=== PATIENT | female | born 1980 | race Caucasian/White ===

== ENCOUNTER 2019-06-26 12:10 | Inpatient (IN) | payer SELFPAY ==
[2019-06-26 11:57] VITALS: BMI 29.3
[2019-06-26 12:04] LABS: ROM Internal Control Test YES-OK TO RESULT pt. (Internal QC)
[2019-06-26 12:05] LABS: ROM Patient Test POSITIVE (Negative); Record Kit Lot#, ROM+ J8255
[2019-06-26] MEDS: Lactated Ringers 1,000 ML 50 ML IV (12:40)
[2019-06-26 12:51] LABS: Absolute Lymphocyte Count 2.04 X10^3/uL (0.83-4.51); Basophil# 0.04 X10^3/uL; Basophil% 0.3 % (0-1); Eosinophil# 0.07 X10^3/uL; Eosinophils% 0.6 % (0-5); Hematocrit 38.4 % (37-47); Lymphocyte # 2.04 X10^3/ul (4.0); Lymphocyte % 16.5 % (19-41); Mean Corp Hgb Conc 33.9 g/dL (32-36); Mean Corpuscular Volume 88.5 fL (81-99); Mean Platelet Vol. 9.7 fl (6.2-12.0); Monocyte# 1.06 X10^3/uL; Monocyte% 8.6 % (0-10); NRBC Flagged by Analyzer 0 % (0-5); Neutrophil # 9.01 X10^3/uL (2.7-7.7); Neutrophil % 72.9 % (47-70); Platelet Count 174 K/mm3 (150-450); RBC Distribution Width CV 13.3 % (11.6-14.6); RBC Distribution Width SD 43.5 fl (35.1-43.9); Red Blood Count 4.34 M/mm3 (4.2-5.4); White Blood Count 12.4 K/mm3 (4.4-11.0)
[2019-06-26] MEDS: Oxytocin 30 units/NS 500 ml 30 UNITS/500 ML IV.SOLN IV (13:40)
[2019-06-26] MEDS: Lactated Ringers 500 ML 999 ML IV ×2 (15:50→17:13)
[2019-06-26] MEDS: fentaNYL-bupivacaine (epidural) 100 ML BAG EPIDURAL ×2 (16:21→21:02)
[2019-06-26] MEDS: ePHEDrine Sulfate 50 MG/ML Ampul 10 MG IV (19:30)
[2019-06-26] MEDS: Lactated Ringers 1,000 ML 200 ML IV (19:36)
[2019-06-26] MEDS: Amnioinfusion- 0.9% NS 1,000 ML IV.SOLN. INTRA-UTER (22:52)
[2019-06-27] MEDS: Lactated Ringers 1,000 ML 200 ML IV ×2 (01:17→07:42)
[2019-06-27] MEDS: fentaNYL-bupivacaine (epidural) 100 ML BAG EPIDURAL ×2 (01:54→07:00)
[2019-06-27] MEDS: Acetaminophen 325 MG Tablet PO (05:43)
--- NOTE | 2019-06-27 08:55 | PCM.HP.OB ---
- Problem List (1) Advanced maternal age during Status: Acute (2) History of depression Status: Acute (3) Term Status: Acute (4) Positive GBS test Status: Acute (5) Premature rupture of membranes Status: Acute History Date of Admission: 06/26/19 Final BING: 07/02/19 Final BING Source: LMP Gestational age: 39 Weeks and 2 Days History of this : This is a 39 year-old, G [1], P [0], at 39 weeks gestational age presented on 06/25/19 to office and possible ROM. Sent to L&D for evaluation and found positive for rupture. Probable ROM 06/25/19 around noon. Since hospital course maternal fever of 101 this am at 0500. Allergies No Known Allergies Allergy (Verified 06/26/19 11:57) Home Medications: Home Medications Ferrous Sulfate 325 mg PO DAILY 06/26/19 Loratadine [Claritin] 10 mg PO DAILY 06/26/19 [place]-3 Fatty Acids/Fish Oil [Fish Oil 1,000 mg Capsule] 1 ea PO DAILY 06/26/19 Vits [Prenatabs FA] 1 tab PO DAILY 06/26/19 Smoking Status: Never smoker Alcohol: None Number of Fetus(es): 1 NST - FHR Rate Baby A Baseline: 150 Variability:: Minimal Accelerations:: 15 x 15 Decelerations:: Late, Variable FHR Category:: Category II Uterine Activity:: every 2-3 minutes, strong History Past Pregnancies: Past Pregnancies Delivery Date Name GA/Weeks Outcome Route Weight Infant Gender Labor Length Anesthesia Delivery Location Provider FOB Labs: GC/CT negative RPR negative HBsAG negative Rubella Immune GBS positive AB negative Expected Delivery Method: Spontaneous Vaginal Review of Systems Constitutional: Denies: Chills, Fever, Weight Change Cardiovascular: Denies: Chest Pain, Palpitations Respiratory: Denies: Cough, Shortness of breath at rest, Sputum production Gastrointestinal: Reports: Abdominal Pain - with contractions Genitourinary: Denies: Dysuria Psychiatric: Denies: Anxiety, Depression, Homicidal Ideations, Suicidal Ideations Physical Exam General: Alert, Oriented x3, Cooperative Extremities:: No edema SECURITY ASSURANCE ANALYST: Normal external genitalia Estimated gestational size: Appropriate for gestational size Presentation: Cephalic Cervix Dilation (cm): 10 Assessment/Plan All Active Problems Advanced maternal age during (Acute) History of depression (Acute) Term (Acute) Positive GBS test (Acute) Premature rupture of membranes (Acute) This is a 39 year-old, G [1], P [0], at 39 weeks gestational age in active labor, second stage category 2 FHT Suspected Triple I Prolonged rupture of membranes P: 1) Admit to L&D, IV, routine labs 2) GBS antibiotic prophylaxis 3) notified of patient status and plan 4) Maternal fever 101 at 0500. No tachycardia or purulent discharge. Ampicillin and Gentamicin started for Suspected Triple I 5) Complete dilation at 0711, pushing 2hrs at this time. Pushing efforts effective and anticipate vaginal
[2019-06-27] MEDS: Oxytocin 30 units/NS 500 ml 30 UNITS/500 ML IV.SOLN 334 UNITS IV (10:10)
--- NOTE | 2019-06-27 10:33 | PCM.OPRPT ---
Vaginal Delivery Maternal Presentation: Spontaneous Rupture of Membranes, Medically Indicated Induction - suspected prolonged rupture of membranes Method of Induction: Pitocin Medical Reason for Induction: Premature Rupture of Membranes Amniotic Membrane Rupture Type: Spontaneous at home Rupture of Membrane time: unsure 06/25/19? Amniotic Fluid Description: Clear Final BING Source: US <20 weeks Gestational age: 39.2 Date of Procedure: 06/27/19 Pre-Operative Diagnosis: term gestation, SROM Post-Operative Diagnosis: Live female infant Surgery/ Procedure Performed: Vacuum Assisted Vaginal Delivery Type of Anesthesia: Epidural Description of Procedure: Called to evaulate tracing. She is having heart rate decelerations with contractions. Decision made for vacuum-assisted delivery. Vacuum was placed at 550 mmHg pressure total of 2 pulls with 0 pop offs to assist with delivery of the head. head was at the perineum when the vacuum was placed. Camejo catheter was placed. Back it was placed at the flexion point. Once the 's head was delivered the vacuum was released and the rest 's body was delivered without difficulty. Delayed cord clamping was performed was placed on the mother's chest. Presentation: Vertex Placental Delivery Description: Spontaneous Placenta Disposition: Routine to Lab Cord Vessel Description: 3 Vessels Cord Entanglement: None Drain: Camejo to straight drain Estimated Blood Loss: 400 Infant A gender: Female (1 minute): 8 (5 minute): 9 Episiotomy Description: None Laceration: Vaginal Extension/lac - repaired with 2-0 vicryl, 1st degree - repaired with 3-0 rapide, 2nd degree Medications given after delivery: IV Pitocin Complications: None
--- NOTE | 2019-06-27 10:37 | PLAC_PTH ---
PATIENT: NOAH OWENS LOC: [facility] U#:[id number] AGE/SX: 39/F ROOM: WP009 RE06/26/[address]: Dr. Sahara Blanco, MDDOB: 1980 BED: 1 DIS: 06/29/2019 SPEC #: [id number] RECD: 06/27/19 11:03 STATUS: MALCOLM GUIDO #: [id number] RACHNA: 06/27/19 10:[address]: Sahara Blanco DEPT: SURGICAL PATHOLOGY RECD BY: Petey Degroot ENTERED: 06/27/19 12:01 SP TYPE: PLACENTA AZAEL DR: Milka Primary Care Phys Tissues: Placenta, NOS Procedures: Surgery Specimen Level V HEADER OPERATION: Vaginal delivery PRE-OP DIAGNOSIS: Maternal temp, prolonged ROM TISSUE SUBMITTED: Placenta MICROSCOPIC DIAGNOSIS Placenta: Placental disc - third trimester placenta (542 gm). Membranes - acute chorioamnionitis. Umbilical cord - three blood vessels and mild acute funisitis. HAMZAH:nella 07/01/19 MICROSCOPIC DESCRIPTION Slides are reviewed. GROSS DESCRIPTION SPECIMEN: PLACENTA / CLINICAL INFORMATION: A. Weight: 3.188 kg B. Gestational Age: 39 weeks C. Sex: Female PLACENTAL WEIGHT (POST FIXATION): 542 gm PLACENTAL DIMENSIONS: 18 x 16 x 4 cm PLACENTAL SHAPE: Usual ovoid PLACENTAL WEIGHT FOR GESTATIONAL AGE: Within 10-99th percentile MEMBRANES - Present A. Insertion: Marginal B. Site of rupture from edge: 5 cm from edge of placental disc C. Color of membrane: Bowman-redd D. Abnormalities: None UMBILICAL CORD - Present A. Color: Bowman-redd B. Insertion: Paracentral C. Length: 54 cm D. Diameter: 1.2 cm E. Number of vessels: Three F. Abnormalities: None PLACENTAL DISC - Present A. Color of surface: Bowman-redd B. surface abnormalities: None C. Maternal cotyledons: Intact with minimal tears D. Attached retro placental clot: No clot E. Cut surface: Dark red and spongy F. Lesions: None G. Separate clot: Absent SECTIONS SUBMITTED: 1. Membrane roll 2. Cord, maternal end 3. Cord, end 4. Placental disc, and maternal surfaces 5. Placental disc, and maternal surfaces 6. Placental disc, and maternal surfaces SJ:nella 06/30/19 TC:2 CPT: 64221
[2019-06-27] MEDS: Ibuprofen 600 MG Tablet PO ×2 (12:52→21:31)
[2019-06-27] MEDS: Acetaminophen 500 MG Tablet 1000 MG PO (15:33)
[2019-06-27 15:34] VITALS: BP 102/57; PULSE 95; RESP 16; TEMP 37
--- NOTE | 2019-06-27 16:47 | NURSING ---
1545 pt up oob pt gait steady; pt showered
[2019-06-27 21:00] VITALS: BP 114/65; PULSE 84; RESP 18; TEMP 36.7
[2019-06-28 01:30] VITALS: BP 96/57; PULSE 72; RESP 18; TEMP 36.4
[2019-06-28 04:00] VITALS: BP 107/65; PULSE 97; RESP 18; TEMP 37
[2019-06-28] MEDS: Ibuprofen 600 MG Tablet PO ×2 (04:08→18:01)
[2019-06-28 06:27] LABS: Hematocrit 25.4 % (37-47); Hemoglobin 8.8 g/dL (12.0-15.0); Mean Corp Hgb Conc 34.6 g/dL (32-36); Mean Corpuscular Volume 89.4 fL (81-99); Mean Platelet Vol. 9.4 fl (6.2-12.0); Platelet Count 131 K/mm3 (150-450); RBC Distribution Width CV 13.6 % (11.6-14.6); Red Blood Count 2.84 M/mm3 (4.2-5.4); White Blood Count 20.8 K/mm3 (4.4-11.0)
[2019-06-28 10:00] VITALS: BP 110/63; PULSE 83; RESP 16; TEMP 36.1
--- NOTE | 2019-06-28 11:38 | PCM.PN.OB ---
Patient Problems: Active and Suspected Problems Advanced maternal age during (Acute) History of depression (Acute) Term (Acute) Positive GBS test (Acute) Premature rupture of membranes (Acute) Subjective: Doing well per patient and nursing staff. Ambulating and taking PO without difficulty. Voiding and passing and flatus. Denies headache, vision changes, chest pain, shortness of breath or leg pain. No increased vaginal bleeding or clots. Planning D/C home tomorrow. without difficulty. - Physical Exam General: Alert, Oriented x3, Cooperative HEENT: Atraumatic, Normocephalic Neck: Trachea Midline Lungs: Clear to auscultation, Normal air movement, No rhonchi, No wheeze Cardiovascular: Regular rate, Regular Rhythm, No murmurs Abdomen: Bowel Sounds Present, - - Fundus firm 2 below U Extremities: No edema Psych/Mental Status: Normal Affect, Appropriate Vital Signs Temp Pulse Resp BP 97 F L 83 16 110/63 06/28/19 10:00 06/28/19 10:00 06/28/19 10:00 06/28/19 10:00 Oxygen Delivery Method Room Air Weight: 170 lb 13.732 oz Body Mass Index (BMI) 29.3 Intake and Output for Last 24 Hours 06/26/19 06/27/19 06/28/19 23:59 23:59 23:59 Intake Total 2562.63 / 2562.63 4805.73 / 4805.73 Output Total 500 / 500 2400 / 2400 700 / 700 Balance 2062.63 / 2062.63 2405.73 / 2405.73 -700 / -700 Laboratory Tests Past 24 Hrs 06/27/19 06/28/19 15:25 06:20 WBC 20.8 H RBC 2.84 L Hgb 8.8 L Hct 25.4 L MCV 89.4 MCH 31.0 MCHC 34.6 RDW Std Deviation 44.0 H RDW Coeff of Vanessa 13.6 Plt Count 131 L MPV 9.4 Screen NEGATIVE Baby's Blood Type AB POSITIVE Baby's LANA NEGATIVE Medical Necessity - Tobacco Use Smoking Status: Never smoker Assessment/Plan All Active Problems Advanced maternal age during (Acute) History of depression (Acute) Term (Acute) Positive GBS test (Acute) Premature rupture of membranes (Acute) A: PPD #2 VAVD Blood loss anemia P: 1) Routine care 2) Planning D/C home tomorrow 3) Ferrous Sulfate 325mg PO BID. Repeat CBC in am 4) Will watch temp, no elevation post delivery. WBC 20.4, repeat in am. Nursing to call if temperature elevation.
[2019-06-28 14:00] VITALS: BP 119/75; PULSE 88; TEMP 36.5
[2019-06-28] MEDS: Ferrous Sulfate 325 MG Tablet PO ×2 (14:23→20:02)
[2019-06-28] MEDS: Senna/Docusate Sodium 1 Tablet PO (18:01)
[2019-06-28 20:00] VITALS: BP 107/52; PULSE 95; RESP 16; TEMP 36.8
[2019-06-29 01:42] VITALS: BP 126/66; PULSE 81; RESP 16; TEMP 36.4
[2019-06-29] MEDS: Ibuprofen 600 MG Tablet PO ×2 (04:15→10:25)
[2019-06-29 04:58] LABS: Absolute Lymphocyte Count 2.85 X10^3/uL (0.83-4.51); Absolute Neutrophil Count 9.5 X10^3/uL (2.0-7.7); Basophil# 0.07 X10^3/uL; Basophil% 0.5 % (0-1); Eosinophils% 2.2 % (0-5); Hematocrit 24.9 % (37-47); Hemoglobin 8.4 g/dL (12.0-15.0); Lymphocyte # 2.85 X10^3/ul (4.0); Lymphocyte % 20.5 % (19-41); Mean Corp Hgb Conc 33.7 g/dL (32-36); Mean Corpuscular Hgb 30.8 pg (27.0-32.0); Mean Corpuscular Volume 91.2 fL (81-99); Mean Platelet Vol. 9.5 fl (6.2-12.0); Monocyte# 1.09 X10^3/uL; Monocyte% 7.9 % (0-10); NRBC Flagged by Analyzer 0 % (0-5); Neutrophil # 9.46 X10^3/uL (2.7-7.7); Neutrophil % 68.1 % (47-70); Platelet Count 127 K/mm3 (150-450); RBC Distribution Width CV 13.9 % (11.6-14.6); RBC Distribution Width SD 45.1 fl (35.1-43.9); Red Blood Count 2.73 M/mm3 (4.2-5.4); White Blood Count 13.9 K/mm3 (4.4-11.0)
[2019-06-29 08:00] VITALS: BP 103/69; PULSE 84; RESP 16; TEMP 36.4
--- NOTE | 2019-06-29 10:51 | PCM.PN.OB ---
Patient Problems: Active and Suspected Problems Advanced maternal age during (Acute) History of depression (Acute) Term (Acute) Positive GBS test (Acute) Premature rupture of membranes (Acute) Subjective: Doing well per patient and nursing staff. Taking PO and ambulating without difficulty. Voiding and passing flatus. without difficulty. Planning D/C home today. Pain controlled with Ibuprofen. - Physical Exam General: Alert, Oriented x3, Cooperative HEENT: Atraumatic, Normocephalic Neck: Trachea Midline Lungs: Clear to auscultation, Normal air movement, No rhonchi, No wheeze Cardiovascular: Regular rate, Regular Rhythm, No murmurs Abdomen: Soft, - - Fundus firm 2 below U Extremities: No edema, - - Raffy's negative Psych/Mental Status: Normal Affect, Appropriate Comment: Lochia rubra small amount. Perineum well approximated. Vital Signs Temp Pulse Resp BP 97.6 F L 84 16 103/69 06/29/19 08:00 06/29/19 08:00 06/29/19 08:00 06/29/19 08:00 Oxygen Delivery Method Room Air Weight: 170 lb 13.732 oz Body Mass Index (BMI) 29.3 Intake and Output for Last 24 Hours 06/27/19 06/28/19 06/29/19 23:59 23:59 23:59 Intake Total 4805.73 / 4805.73 Output Total 2400 / 2400 700 / 700 Balance 2405.73 / 2405.73 -700 / -700 Laboratory Tests Past 24 Hrs 06/29/19 04:50 WBC 13.9 H RBC 2.73 L Hgb 8.4 L Hct 24.9 L MCV 91.2 MCH 30.8 MCHC 33.7 RDW Std Deviation 45.1 H RDW Coeff of Vanessa 13.9 Plt Count 127 L MPV 9.5 Immature Gran % (Auto) 0.800 Neut % (Auto) 68.1 Lymph % (Auto) 20.5 [place] % (Auto) 7.9 Eos % (Auto) 2.2 Baso % (Auto) 0.5 Absolute Neuts (auto) 9.5 H Absolute Lymphs (auto) 2.85 Nucleated RBC % 0 Medical Necessity - Tobacco Use Smoking Status: Never smoker Assessment/Plan All Active Problems Advanced maternal age during (Acute) History of depression (Acute) Term (Acute) Positive GBS test (Acute) Premature rupture of membranes (Acute) A:PPD #2 VAVD Blood loss anemia P: 1) D/C and instructions reviewed. 2) Ferrous Sulfate 325mg PO BID for blood loss anemia. Asymptomatic. 3) Follow up in 2 weeks and 6 weeks 4) D/C home today.
--- NOTE | 2019-06-29 10:54 | DCINST_ITS ---
Discharge Diet: No Restrictions Discharge Activity: Return to Normal Activity, May Drive, May Shower, May Take a Tub Bath May resume sexual activity in: 4-6 weeks Weight Bearing Status: Full weight bearing Additional Activity Instructions:: Nothing in the vagina for 4-6 weeks. You may return to work/school in 6 weeks. Call your doctor if your incision/area has: Continuous Slow Oozing, Sudden Increased Bleeding, Increased Pain/ Swelling, Increased Redness, Foul Smelling Discharge Call your doctor if you observe: Fever of 101 or Higher, Inability to urinate, Inability to have a bowel movement, Using more than one pad per hour, Shortness of breath, Chest pain, Increased palpitations (irregular heartbeat), Calf discomfort, Uncontrolled pain Additional Instructions: If you experience any of the following, contact your healthcare provider. * Bleeding that soaks a pad every hour for 2 hours * Fever 100.4 or higher * Unrelieved incision or abdominal pain * Swelling, redness, discharge or bleeding from your incision or episiotomy site * Your incision begins to separate * Problems urinating (including inability to urinate or burning while urinating). * Visual changes * Severe headache * Flu-like symptoms * Pain or redness in one of both of your breasts * Pain, warmth, tenderness or swelling in your legs, especially the calf area * Frequent nausea and vomiting * Symptoms of depression or anxiety If you experience any of the following, call 911 or go to the nearest Emergency Room. * Chest pain * Problems breathing * Seizure activity * Partial or complete paralysis of a body part, slurred speech, weakness or drooping of the face, or a sudden inability to walk or hold your balance Allergies/Adverse Reactions: Allergies No Known Allergies Allergy (Verified 06/26/19 11:57) Medications to take at Discharge [place]-3 Fatty Acids/Fish Oil [Fish Oil 1,000 mg Capsule] 1 ea PO DAILY 06/26/19 Vits [Prenatabs FA ] 1 tab PO DAILY 06/26/19 Ferrous Sulfate 325 mg PO 1200,1700 tab 06/29/19 Ibuprofen [Motrin] 600 mg PO Q6H PRN PRN tab 06/29/19 Please Follow Up With: Sahara Blanco MD When: Call to make an appointment with your doctor in 6 weeks. If you had elevated Blood Pressure or 4th degree laceration you will need to be seen in 2 weeks. Primary Care Physician: Care Physician,No Primary [Primary Care Provider] - Test Results: Test results from this visit will be discussed in further detail at your follow- up appointment, if applicable.
[2019-07-01 14:34] LABS: Pathology Specimen OB SEE PATHOLOGY REPORT
== END 2019-06-29 11:35 | disposition home or self-care (01) | DRG 805 ==
LOC: WPOUT 12:13
PROVIDERS: Obstetrics & Gynecology; Admitting Provider Obstetrics & Gynecology; Referring Provider Obstetrics & Gynecology; Visit Provider Obstetrics & Gynecology
DX: O76 Abnormality in fetal heart rate and rhythm complicating labor and delivery (principal); O41.1230 Chorioamnionitis, third trimester, not applicable or unspecified; Z37.0 Single live birth; D62 Acute posthemorrhagic anemia; O75.2 Pyrexia during labor, not elsewhere classified; O42.12 Full-term premature rupture of membranes, onset of labor more than 24 hours following rupture; O70.1 Second degree perineal laceration during delivery; O99.824 Streptococcus B carrier state complicating childbirth; O90.81 Anemia of the puerperium; Z3A.39 39 weeks gestation of pregnancy
CPT/HCPCS: 59025; 59050; 84112; 85025; 85027; 85461; 86850; 86900; 86901; 88307; 90384; 99218; J7030; J7120; G0378; J0290; J2790

== ENCOUNTER → 2022-03-27 | Outpatient (CLI) | payer SELFPAY ==
[2022-03-27 11:10] LABS: Absolute Lymphocyte Count 2.23 X10^3/uL (0.83-4.51); Absolute Neutrophil Count 5.8 X10^3/uL (2.0-7.7); Basophil# 0.06 X10^3/uL; Basophil% 0.7 % (0-1); Eosinophil# 0.05 X10^3/uL; Eosinophils% 0.6 % (0-5); Lymphocyte # 2.23 X10^3/ul (0.83-4.51); Lymphocyte % 25.3 % (19-41); Mean Corp Hgb Conc 34.2 g/dL (32-36); Mean Corpuscular Volume 87.8 fL (81-99); Mean Platelet Vol. 9.7 fl (6.2-12.0); Monocyte# 0.68 X10^3/uL; Monocyte% 7.7 % (0-10); NRBC Flagged by Analyzer 0 % (0-5); Neutrophil # 5.78 X10^3/uL (2.7-7.7); Neutrophil % 65.4 % (47-70); Platelet Count 246 K/mm3 (150-450); RBC Distribution Width CV 12.5 % (11.6-14.6); RBC Distribution Width SD 40.2 fl (35.1-43.9); Red Blood Count 4.33 M/mm3 (4.2-5.4); White Blood Count 8.8 K/mm3 (4.4-11.0)
[2022-03-27 11:55] LABS: Rubella IgG Reactive (Nonreactive)
[2022-03-29 17:18] LABS: HPV APTIMA, High Risk Negative (Negative)
== END | disposition home or self-care (01) ==
LOC: LAB 10:24
PROVIDERS: Referring Provider Obstetrics & Gynecology; Visit Provider Obstetrics & Gynecology
DX: Z34.90 Encounter for supervision of normal pregnancy, unspecified, unspecified trimester (principal); Z12.4 Encounter for screening for malignant neoplasm of cervix
CPT/HCPCS: 36415; 85025; 86762; 86850; 86900; 86901; 87086; 87624; 88175; G0145

== ENCOUNTER → 2022-05-23 | Outpatient (CLI) | payer SELFPAY ==
[2022-05-23 12:54] LABS: NATERA MAILED SPECIMEN
== END | disposition home or self-care (01) ==
LOC: LAB 11:51
PROVIDERS: Referring Provider Obstetrics & Gynecology; Visit Provider Obstetrics & Gynecology
DX: O09.512 Supervision of elderly primigravida, second trimester (principal); Z3A.00 Weeks of gestation of pregnancy not specified
CPT/HCPCS: 36415

== ENCOUNTER → 2022-06-08 | Outpatient (CLI) | payer SELFPAY ==
--- NOTE | 2022-06-08 08:03 | US_ITS ---
STUDY: SECOND AND THIRD TRIMESTER OBSTETRICAL ULTRASOUND REASON FOR EXAM: Female, 42 years old 20 week anatomy LMP: 01/08/2022. TECHNIQUE: Transabdominal and Transvaginal TECHNICAL QUALITY: Adequate. PRIOR ULTRASOUND: None. FINDINGS: There is a single intrauterine fetus. The fetus is in a breech presentation. There is demonstrated cardiac activity with a heart rate of 134 bpm. There is a normal amniotic fluid volume. The largest amniotic fluid pocket measures 4.6 cm. The amniotic fluid index (ZACHARY) is within normal limits. The placenta is posterior in location and is not low lying. There are Grade 0 placental changes. The cervix measures 5.5 cm in length. The bilateral adnexal regions are normal. BIOMETRY: BPD: 4.93 cm: 20 weeks, 6 days HC: 18.76 cm: 21 weeks, 0 days AC: 16.51 cm: 21 weeks, 4 days FL: 3.3 cm: 20 weeks, 2 days CI: 75% FL/BPD: 67% FL/HC: FL/AC: 20% HC/AC: 1.14 age by current US: 20 weeks, 6 days. BING by current US: 10/20/2022. Estimated weight: 394 grams, +/- grams, 19 %. Age by LMP: 21 weeks, 4 days. BING by LMP: 10/15/2022. ANATOMY: Gender: Female Cranium: Normal lateral ventricles. Normal choroid plexus. Normal cerebellum. Normal cisterna magna. Normal face, nose and lips. Chest: Normal 4-chamber heart. Abdomen/Pelvis: Normal diaphragm. Normal stomach. Normal abdominal wall. Normal cord insertion. Normal 3 vessel cord. Normal kidneys. Normal bladder. Spine: Normal cervical spine. Normal thoracic spine. Normal lumbar spine. Normal sacrum. Extremities: Normal bilateral upper extremities. Normal bilateral lower extremities. US/OB Anatomy Scan IMPRESSION: Single live intrauterine gestation with a mean gestational age of 20 weeks and 6 days. Electronically Signed: Freddy Hoffman MD at 15:07 EDT ,
== END | disposition home or self-care (01) ==
LOC: OPUS 07:50
PROVIDERS: Referring Provider Nurse Practitioner Women's Health; Visit Provider Nurse Practitioner Women's Health
DX: O09.512 Supervision of elderly primigravida, second trimester (principal); Z3A.20 20 weeks gestation of pregnancy
CPT/HCPCS: 76805; 76817

== ENCOUNTER 2022-06-14 11:11 | Emergency (ER) | payer SELFPAY ==
[2022-06-14 11:13] VITALS: BP 110/72; PULSE 107; RESP 14; TEMP 36.2; O2SAT 98; BMI 28.0
--- NOTE | 2022-06-14 11:57 | EDS_ITS ---
HPI HPI - GI History of Present Illness Chief Complaint: Abd Pain Informant: patient Narrative Narrative: Patient presents with nausea vomiting and epigastric discomfort. She contacted her OB physician who referred her here. Patient denies any chest pain shortness of breath leg pain or swelling. No history of DVT or PE. She did have a recent car drive that was about 8 or 9 hours. She did get out 2 or 3 times to walk around. She denies fevers or chills. She has some slight achiness but that is hard to tell if it is much different than her normal with . She did have some mild hyperemesis problems early in the but they were mild and had resolved. She does not know any sick contacts. Nothing makes this better or worse. Patient has had prior appendectomy. No cholecystectomy. She is G2, P1. Normal vaginal delivery with first . PFSH PFSH Home Medications vits,calcium no.78-iron fumarate-folic acid 29 mg-1 mg tablet 1 tab PO DAILY 06/26/19 [History Last Taken 06/06/22] magnesium citrate 100 mg capsule 200 mg PO DAILY 03/21/22 [History Last Taken 06/13/22] metoclopramide HCl 5 mg tablet (Reglan) 5 mg PO TID PRN nausea #30 tabs 05/23/22 [Rx Last Taken Unknown] Lactobacillus acidophilus 1,000 mmu cells PO DAILY 06/14/22 [History Last Taken 06/13/22] famotidine 20 mg tablet (Pepcid) 20 mg PO BID #14 tabs 06/14/22 [Rx Last Taken Unknown] loratadine 10 mg tablet 10 mg PO DAILY 06/14/22 [History Last Taken 06/13/22] ondansetron 4 mg disintegrating tablet 4 mg PO Q8H PRN nausea and vomiting #10 tabs 06/14/22 [Rx Last Taken Unknown] Allergy/AdvReac Type Severity Reaction Status Date / Time seasonal allergies Allergy Mild nasal Uncoded 06/14/22 11:13 drainage Family History Mother Diabetes Surgical History S/P appendectomy Social History adopted: No household members: spouse number of children: 1 current occupation: [employer] pets and animals: Yes (avoid litter box) pets and animals: cat(s) and dog(s) Smoking Status: Never smoker alcohol intake: never substance use type: does not use do you feel safe at home: Yes additional social history: spouse [place] EXAM Physical Exam Const Vital Signs: 06/14/22 11:13 06/14/22 14:18 Temperature 97.1 F L Temperature Source Temporal Pulse Rate 107 H 83 Respiratory Rate 14 18 Blood Pressure 110/72 117/69 Blood Pressure Mean 84 85 Pulse Ox 98 100 Oxygen Delivery Method Room Air Room Air Positive well nourished and well developed General Appearance ED: well developed and NAD; Negative for pallor HEENT Reports dry mucous membranes Mouth ED: Yes dry mucous membranes Mouth: dry mucous membranes Eyes General Eye ED: Negative for scleral icterus Neck supple Resp normal respiratory effort and clear to auscultation bilaterally Resp Narrative: No pain with a deep breath Auscultation: rales; Negative for rhonchi or wheezes Cardio regular rate GI GI Narrative: Bowel sounds are normal. Abdomen is gravid consistent with dates. Uterus is nontender. There is mild epigastric tenderness. No real right upper quadrant tenderness or left upper quadrant tenderness low. No rebound or guarding. Back/Spine no CVA tenderness Extremity full ROM Extremity Narrative: No edema, cords, distended veins or asymmetry. No tenderness along the deep venous system General Extremety ED: Negative for edema or tenderness General Extremity: Negative for edema Neuro Sensorium / Orientation: alert Psych mental status grossly normal Skin no wounds General Skin Exam: Negative for jaundice or pallor MDM MDM MDM Narrative Medical decision making narrative: Patient CBC shows minimal elevation of white count which is typical for her stage of . Hemoglobin is minimal anemia. Platelets are normal. Electrolytes are normal other than mildly low potassium. She states she can just eat a few bananas. LFTs are not elevated. Lipase is normal. Urine is clean. Patient is feeling better with treatment. She still has a little bit of dis comfort in the epigastrium. But she is not really tender. We did give her Pepcid. We talked about options. This patient has already had appendectomy. I do not think CAT scan is appropriate for her abdomen. We discussed the option of doing ultrasound. But she is already feeling better and has normal liver function test. She agreed that it is unlikely to have surgery for gallbladder issues now even if that is the cause. She is feeling better. Are agreed plan is that we will treat her symptoms with meds for nausea and Pepcid. If they are worsening, developing fevers, recurrent vomiting or any other concerns she she will return and we will look further. Lab Data Attestation: I reviewed the patient's lab results. Labs: Laboratory Results - last 24 hr 06/14/22 06/14/22 06/14/22 12:05 12:05 12:05 WBC 11.2 H RBC 3.68 L Hgb 11.2 L Hct 32.9 L MCV 89.4 MCH 30.4 MCHC 34.0 RDW Std Deviation 43.2 RDW Coeff of Vanessa 13.3 Plt Count 185 MPV 9.1 Immature Gran % (Auto) 0.800 Neut % (Auto) 71.1 H Lymph % (Auto) 18.4 L [place] % (Auto) 8.6 Eos % (Auto) 0.7 Baso % (Auto) 0.4 Absolute Neuts (auto) 7.9 H Absolute Lymphs (auto) 2.06 Nucleated RBC % 0 Sodium 137 Potassium 3.1 L Chloride 105 Carbon Dioxide 27.0 Anion Gap 5 BUN 7 Creatinine 0.50 L Estim Creat Clear Calc 129.15 Est GFR (MDRD) Af Amer 175 Est GFR (MDRD) Non-Af 144 BUN/Creatinine Ratio 13.9 Glucose 96 Calcium 8.4 L Total Bilirubin 0.80 AST 20 ALT 23 Alkaline Phosphatase 39 L Total Protein 6.3 L Albumin 2.7 L Globulin 3.6 Albumin/Globulin Ratio 0.8 L Lipase 257 Urine Color Yellow Urine Clarity Sl. Cloudy Urine pH 7.0 Ur Specific [place] 1.010 Urine Protein Negative Urine Glucose (UA) Normal Urine Ketones Negative Urine Occult Blood Negative Urine Nitrite Negative Urine Bilirubin Negative Urine Urobilinogen Normal Ur Leukocyte Esterase Negative Urine RBC 0 SEEN Urine WBC 0 SEEN Ur Squamous Epith Cells 0 SEEN Urine Bacteria 0 SEEN Urine Mucus 0 SEEN Discharge Plan Triage Chief Complaint: Abd Pain ED Provider: Asif Causey Dx/Rx/DC Orders Clinical Impression: Acute epigastric pain Instructions: ED Epigastric Pain Uncertain Cause Prescriptions: New ondansetron 4 mg tablet,disintegrating 4 mg PO Q8H PRN (Reason: nausea and vomiting) Qty: 10 0RF famotidine [Pepcid] 20 mg tablet 20 mg PO BID Qty: 14 0RF No Action magnesium citrate 100 mg capsule 200 mg PO DAILY metoclopramide HCl [Reglan] 5 mg tablet 5 mg PO TID PRN (Reason: nausea) Qty: 30 3RF Rx Instructions: administer 30 minutes before meals [id number] 1 TABLET tablet 1 tab PO DAILY Lactobacillus acidophilus Capsule 1,000 mmu cells PO DAILY loratadine 10 mg Tablet 10 mg PO DAILY Primary Care Provider: Care Physician,No Primary Referrals: Care Physician,No Primary [Primary Care Provider] - Disposition Disposition: Home, Self Care
--- NOTE | 2022-06-14 12:18 | CASEMGMT ---
Social Work Consult: No PCP Referral source: Self referral due to above. Met with patient in room. Introduced self and social service agency director role. Patient is agreeable to speak with this social service agency director. This social service agency director broached topic of no PCP. Patient confirms to not have a PCP. Patient reports to have moved to [place] 4 years ago and has not gotten a PCP set up as patient typically sees patient [employer]. This social service agency director encouraged patient to establish with a PCP as this can be helpful if patient has general medical issues/concerns. Patient voiced understanding and reports intent to have set up with PCP that patient spouse is established with but have not done it yet. Patient agreeable to this social service agency director providing patient with list of PCP's that are local to patient, patient has [facility] insurance, this social service agency director provided patient with list. Patient denies any further community concerns. No further services requested or indicated. Paul GUO, CHELO
[2022-06-14 12:20] LABS: Absolute Lymphocyte Count 2.06 X10^3/uL (0.83-4.51); Absolute Neutrophil Count 7.9 X10^3/uL (2.0-7.7); Basophil# 0.04 X10^3/uL; Basophil% 0.4 % (0-1); Eosinophil# 0.08 X10^3/uL; Eosinophils% 0.7 % (0-5); Hematocrit 32.9 % (37-47); Hemoglobin 11.2 g/dL (12.0-15.0); Lymphocyte # 2.06 X10^3/ul (0.83-4.51); Lymphocyte % 18.4 % (19-41); Mean Corpuscular Hgb 30.4 pg (27.0-32.0); Mean Corpuscular Volume 89.4 fL (81-99); Mean Platelet Vol. 9.1 fl (6.2-12.0); Monocyte# 0.96 X10^3/uL; Monocyte% 8.6 % (0-10); NRBC Flagged by Analyzer 0 % (0-5); Neutrophil # 7.94 X10^3/uL (2.7-7.7); Neutrophil % 71.1 % (47-70); Platelet Count 185 K/mm3 (150-450); RBC Distribution Width CV 13.3 % (11.6-14.6); RBC Distribution Width SD 43.2 fl (35.1-43.9); Red Blood Count 3.68 M/mm3 (4.2-5.4); White Blood Count 11.2 K/mm3 (4.4-11.0)
[2022-06-14] MEDS: Ondansetron 4 MG/2 ML Vial IV (12:28)
[2022-06-14] MEDS: 0.9% Normal Saline 1,000 ML 1000 ML IV (12:28)
[2022-06-14 12:35] LABS: ALB/GLOB Ratio 0.8 RATIO (0.9-2.4); AST(SGOT) 20 U/L (15-37); Alanine Aminotransfer ALT/SGPT 23 U/L (13-56); Albumin, Serum 2.7 g/dL (3.2-5.0); Alkaline Phosphatase 39 U/L (45-117); Anion Gap 5 (5-15); BUN 7 mg/dL (7-18); BUN/Creat Ratio 13.9 RATIO (10-20); Bacteria 0 SEEN /hpf (None Seen); Calcium,Total 8.4 mg/dL (8.5-10.1); Chloride 105 mmol/L (98-107); EST Glomerular Filtration Rate 144 mL/min (>60); Est Glom Filt Rate - Afr Amer 175 mL/min (>60); Estimated Creatinine Clearance 129.15 ml/min; Globulin 3.6 g/dL (2.2-4.2); Glucose 96 mg/dL (74-106); Lipase 257 U/L (73-393); Mucous, Urine 0 SEEN /hpf (<or=2+); Potassium 3.1 mmol/L (3.5-5.1); Protein, Total 6.3 g/dL (6.4-8.2); Red Blood Cells-Urine 0 SEEN /hpf (0-5); Sodium Level 137 mmol/L (136-145); Squamous Epithelial Cells - UA 0 SEEN /hpf (5-10); White Blood Cells 0 SEEN /hpf (0-5)
[2022-06-14 12:43] LABS: Color, Urine Yellow (Yellow); Glucose, Dipstick Normal (Normal); Ketone-Dipstick Negative (Negative); Leukocyte Esterase-Dipstick Negative /ul (Negative); Nitrite-Dipstick Negative (Negative); Occult Blood-Urine Negative /ul (Negative); Protein-Dipstick Negative (Negative); Urine Bilirubin Dipstick Negative (Negative); Urine Clarity Sl. Cloudy (Clear); Urine Urobilinogen Normal (Normal)
[2022-06-14] MEDS: Famotidine 20 MG Tablet PO (14:16)
[2022-06-14 14:18] VITALS: BP 117/69; PULSE 83; RESP 18; O2SAT 100
[2022-06-14 14:54] VITALS: BP 110/61; PULSE 84; RESP 16; O2SAT 100
== END 2022-06-14 14:54 | disposition home or self-care (01) ==
PROVIDERS: Emergency Provider Emergency Medicine; Visit Provider Emergency Medicine
DX: O26.899 Other specified pregnancy related conditions, unspecified trimester (principal); R10.13 Epigastric pain; Z3A.00 Weeks of gestation of pregnancy not specified
CPT/HCPCS: 80053; 81001; 83690; 85025; 96361; 96374; 99284; J7030; J2405

== ENCOUNTER → 2022-08-02 | Outpatient (CLI) | payer SELFPAY ==
[2022-08-02 11:40] LABS: Absolute Lymphocyte Count 1.88 X10^3/uL (0.83-4.51); Absolute Neutrophil Count 7.7 X10^3/uL (2.0-7.7); Basophil# 0.04 X10^3/uL; Basophil% 0.4 % (0-1); Eosinophil# 0.09 X10^3/uL; Eosinophils% 0.9 % (0-5); Hematocrit 28.7 % (37-47); Hemoglobin 10.2 g/dL (12.0-15.0); Lymphocyte # 1.88 X10^3/ul (0.83-4.51); Lymphocyte % 18.1 % (19-41); Mean Corp Hgb Conc 35.5 g/dL (32-36); Mean Corpuscular Volume 87.2 fL (81-99); Mean Platelet Vol. 9.4 fl (6.2-12.0); Monocyte# 0.68 X10^3/uL; Monocyte% 6.5 % (0-10); NRBC Flagged by Analyzer 0 % (0-5); Neutrophil # 7.67 X10^3/uL (2.7-7.7); Neutrophil % 73.6 % (47-70); Platelet Count 168 K/mm3 (150-450); RBC Distribution Width CV 12.9 % (11.6-14.6); Red Blood Count 3.29 M/mm3 (4.2-5.4); White Blood Count 10.4 K/mm3 (4.4-11.0)
[2022-08-02 11:49] LABS: Glucose Challenge Gest 1H 50g 118 mg/dL (70-140)
== END | disposition home or self-care (01) ==
PROVIDERS: Obstetrics & Gynecology; Referring Provider Obstetrics & Gynecology; Visit Provider Obstetrics & Gynecology
DX: O09.90 Supervision of high risk pregnancy, unspecified, unspecified trimester (principal); O26.899 Other specified pregnancy related conditions, unspecified trimester; Z67.91 Unspecified blood type, Rh negative; Z3A.00 Weeks of gestation of pregnancy not specified
CPT/HCPCS: 36415; 82950; 85025; 86900; 86901

== ENCOUNTER → 2022-09-15 | Outpatient (CLI) | payer SELFPAY ==
[2022-09-15 14:10] LABS: HIV - WCH Non-Reactive (Nonreactive); Hepatitis B Surface Antigen Non-Reactive (Nonreactive); Hepatitis C Antibody Non-Reactive (Nonreactive); Syphilis Antibodies Non-reactive
== END | disposition home or self-care (01) ==
PROVIDERS: Visit Provider Obstetrics & Gynecology
DX: O09.90 Supervision of high risk pregnancy, unspecified, unspecified trimester (principal)
CPT/HCPCS: 36415; 86703; 86780; 86803; 87340

== ENCOUNTER → 2022-09-29 | Outpatient (CLI) | payer SELFPAY | END | disposition home or self-care (01) | LOC: LABSPEC 12:25 | PROVIDERS: Referring Provider Obstetrics & Gynecology; Visit Provider Obstetrics & Gynecology | DX: O09.90 Supervision of high risk pregnancy, unspecified, unspecified trimester (principal) | CPT/HCPCS: 87077; 87081; 87186 ==

== ENCOUNTER → 2022-10-03 | Outpatient (CLI) | payer SELFPAY ==
--- NOTE | 2022-10-03 13:27 | US_ITS ---
STUDY: SECOND AND THIRD TRIMESTER OBSTETRICAL ULTRASOUND - LIMITED REASON FOR EXAM: Female, 42 years old. Advanced maternal age GROWTH PRIOR ULTRASOUND: 9.8.22 TECHNIQUE: Transabdominal TECHNICAL QUALITY: Adequate. FINDINGS: There is a single intrauterine fetus. The fetus is in a cephalic presentation. There is demonstrated cardiac activity with a heart rate of 160 bpm. There is a normal amniotic fluid volume. The largest amniotic fluid pocket measures 8.6 cm. The amniotic fluid index (ZACHARY) is 20.2 cm. The placenta is posterior in location and is not low lying. There are Grade 2 placental changes. The cervix is obscured by overlying bowel gas and cannot be identified. . BIOMETRY: BPD: 92 mm: 37 weeks, 3 days HC: 332 mm: 37 weeks, 6 days AC: 341 mm: 38 weeks, 0 days FL: 73 mm: 37 weeks, 2 days CI: 80 FL/AC: 21 FL/BPD: 79 HC/AC: 398 age by current US: 37 weeks, 4 days. BING by current US: 1.20.23. Estimated weight: 3325 grams, +/- 499 grams, 77 %. age by prior US: 37 weeks, 4 days. BING by prior US: 1.20.23. Age by LMP: 37 weeks, 0 days. BING by LMP: 1.24.23. US/OB Limited With Biometrics IMPRESSION: There is a single live intrauterine with a heart rate of 160 bpm. EFW is greater than 75%. Large for gestational age (LGA) should be considered. Electronically Signed: Sal Mart MD at 15:17 EST ,
--- NOTE | 2022-10-03 13:33 | US_ITS ---
STUDY: OBSTETRICAL ULTRASOUND - BIOPHYSICAL PROFILE REASON FOR EXAM: Female, 42 years old. non reactive nst PRIOR ULTRASOUND: 9.8.22 TECHNIQUE: Transabdominal TECHNICAL QUALITY: Adequate. FINDINGS: There is a single intrauterine fetus. The fetus is in a cephalic presentation. There is demonstrated cardiac activity with a heart rate of 122 bpm. There is a normal amniotic fluid volume. The largest amniotic fluid pocket measures 7.5 cm. The amniotic fluid index (ZACHARY) is 19.2 cm. The placenta is posterior in location and is not low lying. There are Grade 2 placental changes. Age by LMP: 37 weeks, 0 days. BING by LMP: 1.24.23. BIOPHYSICAL PROFILE: Breathing Movements (FBM): 2 Gross Body Movements (GBM): 2 Tone (FT): 2 Amniotic Fluid Volume (AFV): 2 TOTAL SCORE: 8 / 8 US/Biophysical Prof W/O Non Stres IMPRESSION: Normal biophysical profile of 8/8. There is a single live intrauterine with a heart rate of 122 bpm. Electronically Signed: Sal Mart MD at 15:14 EST Reading Location ID and State: [facility] / [place] , Service support ,
== END | disposition home or self-care (01) ==
LOC: US 13:25
PROVIDERS: Referring Provider Registered Nurse; Visit Provider Registered Nurse
DX: O09.529 Supervision of elderly multigravida, unspecified trimester (principal); O26.849 Uterine size-date discrepancy, unspecified trimester; Z3A.00 Weeks of gestation of pregnancy not specified
CPT/HCPCS: 76816; 76819

== ENCOUNTER → 2022-10-13 | Outpatient (CLI) | payer SELFPAY ==
--- NOTE | 2022-10-13 18:30 | US_ITS ---
EXAM: US OB LIMITED. HISTORY: ZACHARY only FINDINGS: A limited exam was performed for amniotic fluid index only. A single live intrauterine is identified in cephalic presentation. heart rate is 131 bpm. Amniotic fluid index is 13.7 cm. Largest fluid pocket measures 5.4 cm. The placenta is fundal. anatomy is not evaluated. US/OB Limited (No Biometrics) IMPRESSION: Single live intrauterine . Amniotic fluid index is within normal limits at 13.7 cm. Electronically Signed: Sreedhar Hennessy MD at 8:02 EST ,
== END | disposition home or self-care (01) ==
LOC: US 18:30
PROVIDERS: Visit Provider Obstetrics & Gynecology
DX: O40.9XX0 Polyhydramnios, unspecified trimester, not applicable or unspecified (principal); Z3A.00 Weeks of gestation of pregnancy not specified
CPT/HCPCS: 76815

== ENCOUNTER 2022-10-21 06:50 | Inpatient (IN) | payer SELFPAY ==
[2022-10-21] VITALS (90 sets, daily range): BP systolic 102–121; BP diastolic 52–72; PULSE 79–121; TEMP 36.4–38.2; O2SAT 88–100; BMI 32.1
[2022-10-21 06:45] LABS: ROM Internal Control Test YES-OK TO RESULT pt. (Internal QC)
[2022-10-21 06:47] LABS: ROM Patient Test POSITIVE (Negative)
[2022-10-21] MEDS: Lactated Ringers 1,000 ML 50 ML IV (07:00)
[2022-10-21] MEDS: LACTATED RINGERS 500 ML 999 ML IV ×2 (07:00→20:11)
[2022-10-21 07:08] LABS: Absolute Neutrophil Count 13.6 X10^3/uL (2.0-7.7); Basophil# 0.05 X10^3/uL; Basophil% 0.3 % (0-1); Eosinophil# 0.09 X10^3/uL; Eosinophils% 0.5 % (0-5); Hematocrit 32.9 % (37-47); Hemoglobin 10.8 g/dL (12.0-15.0); Lymphocyte % 12.2 % (19-41); Mean Corp Hgb Conc 32.8 g/dL (32-36); Mean Corpuscular Hgb 28.9 pg (27.0-32.0); Mean Platelet Vol. 9.8 fl (6.2-12.0); Monocyte# 1.25 X10^3/uL; Monocyte% 7.3 % (0-10); NRBC Flagged by Analyzer 0 % (0-5); Neutrophil # 13.59 X10^3/uL (2.7-7.7); Neutrophil % 78.8 % (47-70); Platelet Count 160 K/mm3 (150-450); RBC Distribution Width CV 13.5 % (11.6-14.6); RBC Distribution Width SD 43.1 fl (35.1-43.9); Red Blood Count 3.74 M/mm3 (4.2-5.4); White Blood Count 17.2 K/mm3 (4.4-11.0)
[2022-10-21] MEDS: fentaNYL-bupivacaine (epidural) 100 ML BAG EPIDURAL ×3 (08:25→17:56)
[2022-10-21 08:56] LABS: Chlamydia Trachomatis by PCR Negative (Negative); Neisserai gonorrhoeae by PCR Negative (Negative); Probe Check PASS; Specimen Processing Control PASS
[2022-10-21 08:57] LABS: Sample Adequacy Control PASS
--- NOTE | 2022-10-21 09:41 | HP.PCM.OB_ITS ---
HPI - General General Date of Admission: 10/21/22 HPI Narrative NOAH OWENS, is a 42 F who presents at 39+4 with BING of 10/24/2022 with contractions and LOF since 199. contractions are increasing in intensity and frequency. + movement, no vaginal bleeding. is complicated by AMA, Rh negative, GBS positive. growth scan normal on 10/03 77% [id number], normal ZACHARY on 10/17. Maternal Data Information BING Calculator Estimated Delivery Date Method Current WG Current Estimate 10/24/22 LMP (Certain) 39w 4d Final BING Source: LMP Gestational age: 39+4 PFSH [facility] Medical History Anemia Positive GBS test Home Medications vits,calcium no.78-iron fumarate-folic acid 29 mg-1 mg tablet 1 tab PO DAILY 06/26/19 [History Last Taken 06/06/22] magnesium citrate 100 mg capsule 200 mg PO DAILY 03/21/22 [History Last Taken 06/13/22] loratadine 10 mg tablet 10 mg PO DAILY 06/14/22 [History Last Taken 10/20/22 0800] potassium chloride 20 mEq tablet,extended release(part/cryst) 20 meq PO ONCE #1 TAB 06/21/22 [Rx Last Taken Unknown] Allergy/AdvReac Type Severity Reaction Status Date / Time Seasonal Allergies: Uncoded Allergy Mild Other Verified 10/20/22 14:57 Family History Mother Diabetes Surgical History S/P appendectomy Social History adopted: No household members: spouse number of children: 1 current occupation: [employer] pets and animals: Yes (avoid litter box) pets and animals: cat(s) and dog(s) Smoking Status: Never smoker alcohol intake: never substance use type: does not use do you feel safe at home: Yes additional social history: spouse Loida History 2 Elective abortions Hx Para 1 Spontaneous abortions Hx # Term Pregnancies Ectopic pregnancies Hx # Pregnancies Multiple births # of living children 1 Past Pregnancies Del. Date Name GA/Weeks Outcome Route Bth Weight Infant Gen Labor Lgth Anesthesia Del Petern Provider FOB Unknown 06/27/2019 Ayesha live - full term vacuum 7# Female 21 hr epidural Kelleefrancois Mariscal Delivery Date: Last Updated by: Divine Baldwin WOOD FINISHER, WOOD FINISHER-C no complications Visit Details Expected Delivery Route/Plan Labor Preferences- CB/BF classes: [] labor support person: [] labor intervention preferences: [] pain management options preferred: [] cut cord/dad catch: [] : [] PP control planned: [] discussed possible routes of delivery and associated risks: [] special requests: [] Plans Covid status: [] Flu vaccine: [] Tdap vaccine: obtained Rhogam: obtained LARC form signed: completed. movement and labor precautions reviewed. Problem list reviewed and updated with the most current plan of care details and appropriate orders placed. Relevant counseling for the gestational age provided. Continue routine care and follow up unless otherwise noted in visit notes/problem list details OB Flowsheet Initial Weight: Not Recorded Date -?-?-?-?-?-?-?-?-?-?-?-?- EGA Weight BP Urine Prot -?-?-?-?-?-?-?-?-?-?-?-?- Glucose FHR FuHt Pres Dilation -?-?-?-?-?-?-?-?-?-?-?-?- Effaced St Visit Note 03/27/22 -?-?-?-?-?-?-?-?--?-?-?-?- 9w 6d 151 lb 118/70 -?-?-?-?-?-?-?-?-?-?-?-?- 170 -?-?-?-?-?-?-?-?-?-?-?-?- SM- CRL cons wit h LMP 04/24/22 -?-?-?-?-?-?-?-?-?-?-?-?- 13w 6d 155 lb 4 oz 118/60 Nega tive -?-?-?-?-?-?-?-?-?-?-?-?- Negative 164 -?-?-?-?-?-?-?-?-?-?-?-?- No VB or ifeoma barcenas. Doing well. 05/23/22 -?-?-?-?-?-?-?-?-?-?-?-?- 18w 0d 159 lb 4 oz 100/58 Nega tive -?-?-?-?-?-?-?-?-?-?-?-?- Negative 140 -?-?-?-?-?-?-?-?-?--?-?-?- JV- pt still hav ing some nausea and wants to try reglan. she now also wants NIPT testing. order given. she declines AFP at this time. 06/21/22 -?-?-?-?-?-?-?-?-?-?-?-?- 22w 1d 164 lb 4 oz 110/70 Nega tive -?-?-?-?-?-?-?-?-?-?-?-?- Negative 145 -?-?-?-?-?-?-?-?-?-?-?-?- JV- pt was in er with epigastric pain and cmp was normal. cbc normal. had low K and diagnosed with indigestion. She was prescribed zofran and pepcid. will try reglan and k-dur ordered. pt to call if no improvement may try carafate and consult to GI. 07/19/22 -?-?-?-?-?-?-?-?-?-?-?-?- 26w 1d 166 lb 8 oz 100/65 Nega tive -?-?-?-?-?-?-?-?-?-?-?-?- Negative 136 -?-?-?--?-?-?-?-?-?-?-?-?- JV- no complaint s. plan for GCT and t&S with rhogam next visit. 08/02/22 -?-?-?-?-?-?-?-?-?-?-?-?- 28w 1d 169 lb 4 oz 107/68 Nega tive -?-?-?-?-?-?-?-?-?-?-?-?- Negative 145 28 -?-?-?-?-?-?-?-?-?-?-?-?- JV- normal GCT. mild anemia. pt will take otc iron. tdap and rhogam given today. 08/30/22 -?-?-?-?-?-?-?-?-?-?-?-?- 32w 1d 172 lb 4 oz 102/68 -?-?-?-?-?-?-?-?-?-?-?-?- 135 32 -?-?-?-?-?-?-?-?-?-?-?-?- LC- no complaint s. good fm, no lof/vb/ctx. is considering traveling to [place] at 35 weeks for xmas. discussed risks of travel. will obtain growth scan at 36weeks. 09/15/22 -?-?-?-?-?-?-?-?-?-?-?-?- 34w 3d 172 lb 100/68 Negative -?-?-?-?-?-?-?-?-?-?-?-?- Negative 140 35 -?-?-?-?-?-?-?-?-?-?-?-?- SM- no vb lof go od fm no regular ctx 09/29/22 -?-?-?-?-?-?-?-?-?-?-?-?- 36w 3d 174 lb 125/81 Negative -?-?-?-?-?-?-?-?-?-?-?-?- Negative 135 37 Cephalic 3 -?-?-?-?-?-?-?-?-?-?-?-?- 20 -2 SM- no vb lof good fm no regular ctx gbs today 10/03/22 -?-?-?-?-?-?-?-?-?-?-?-?- 37w 0d 177 lb 124/66 Negative -?-?-?-?-?-?-?-?-?-?-?-?- Negative 130 -?-?-?-?-?-?-?-?-?-?-?-?- SM- no vb lof go od fm no regular ctx, difficult to ascertain baseline, lots of FM on NST- get BPP now 10/12/22 -?-?-?-?-?-?-?-?-?-?-?-?- 38w 2d 173 lb 98/62 Negative -?-?-?-?-?-?-?-?-?-?-?-?- Negative 140 -?-?-?-?-?-?-?-?-?-?-?-?- SM- no vb lof go od fm no regular ctx on nst- had possible variable vs artifac,t broken. get zachary. borderline polyhydramnios on last 10/20/22 -?-?-?-?-?-?-?-?-?-?-?-?- 39w 3d 177 lb 111/65 Negative -?-?-?-?-?-?-?-?-?-?-?-?- Negative 140 -?-?-?-?-?-?-?-?-?-?-?-?- SM- no vb lof go od fm no regular ctx NST FHR Rate Baby A Baseline: 135 Variability:: Moderate Accelerations:: 15 x 15 Decelerations:: None NST Reactive:: Yes FHR Category:: Category I Uterine Activity:: [id number], moderate to palpation ROS Cardiovascular Cardiovascular: Denies chest pain, diaphoresis, dyspnea, edema or fatigue Respiratory/Chest Respiratory/Chest: Denies change in mental status Gastrointestinal Gastrointestinal: Denies diarrhea, nausea or vomiting Genitourinary Genitourinary: Denies change in urinary stream Musculoskeletal Musculoskeletal: Reports none Integumentary Integumentary: Reports none Neurologic Neurologic: Reports none Psychiatric Psychiatric: Reports none Endocrine Endocrinology: Reports none Hematologic/Lymphatic Hematologic/Lymphatic: Reports none Allergic/Immunologic Allergic/Immunologic: Reports none Vital Signs Vital Signs Vital Signs: 10/21/22 06:30 10/21/22 06:30 10/21/22 06:30 Temperature Temperature Source Temporal Pulse Rate 106 H Blood Pressure 117/70 BP Systolic 117 BP Diastolic 70 Pulse Ox 10/21/22 06:30 10/21/22 06:32 10/21/22 06:32 Temperature 97.6 F L Temperature Source Pulse Rate 95 Blood Pressure BP Systolic BP Diastolic Pulse Ox 98 10/21/22 07:41 10/21/22 07:41 10/21/22 07:41 Temperature 98.6 F Temperature Source Pulse Rate 96 Blood Pressure 109/59 L BP Systolic 109 BP Diastolic 59 Pulse Ox 10/21/22 08:10 10/21/22 08:11 10/21/22 08:11 Temperature Temperature Source Pulse Rate 93 Blood Pressure 121/64 H BP Systolic 121 BP Diastolic 64 Pulse Ox 98 10/21/22 08:16 10/21/22 08:16 10/21/22 08:16 Temperature Temperature Source Pulse Rate 91 Blood Pressure 119/71 BP Systolic 119 BP Diastolic 71 Pulse Ox 98 10/21/22 08:19 10/21/22 08:19 10/21/22 08:21 Temperature Temperature Source Pulse Rate 90 89 Blood Pressure 110/66 BP Systolic 110 BP Diastolic 66 Pulse Ox 10/21/22 08:21 10/21/22 08:26 10/21/22 08:26 Temperature Temperature Source Pulse Rate 105 H Blood Pressure 110/62 BP Systolic 110 BP Diastolic 62 Pulse Ox 97 10/21/22 08:26 10/21/22 08:31 10/21/22 08:32 Temperature Temperature Source Pulse Rate 91 Blood Pressure 109/63 BP Systolic 109 BP Diastolic 63 Pulse Ox 97 10/21/22 08:32 10/21/22 08:34 10/21/22 08:34 Temperature Temperature Source Pulse Rate 94 Blood Pressure 114/59 L BP Systolic 114 BP Diastolic 59 Pulse Ox 97 10/21/22 08:37 10/21/22 08:37 10/21/22 08:41 Temperature Temperature Source Pulse Rate 98 Blood Pressure 115/63 BP Systolic 115 BP Diastolic 63 Pulse Ox 98 10/21/22 08:41 10/21/22 08:42 10/21/22 08:42 Temperature Temperature Source Pulse Rate 96 97 Blood Pressure BP Systolic BP Diastolic Pulse Ox 98 10/21/22 08:44 10/21/22 08:44 10/21/22 09:31 Temperature Temperature Source Pulse Rate 90 Blood Pressure 107/62 104/55 L BP Systolic 107 104 BP Diastolic 62 55 Pulse Ox 10/21/22 09:31 10/21/22 09:31 Temperature 98.1 F Temperature Source Pulse Rate 90 Blood Pressure BP Systolic BP Diastolic Pulse Ox Weight Weight: 176 lb Body Mass Index (BMI) 32.1 Physical Exam Const alert, oriented x3 and no apparent distress General Appearance: cooperative, comfortable and well kempt; Negative for in distress Orientation / Consciousness: awake and oriented to person Exam Limitations: no limitations HEENT normocephalic Mouth: oral and palatal mucosa normal Neck full ROM and thyroid normal Chest inspection of chest normal Resp normal respiratory effort Effort and Inspection: able to speak in complete sentences and symmetric chest movement Cardio regular rate Peripheral Pulses: pulses 2+ throughout GI normal to inspection, nondistended, normoactive bowel sounds Inspection: gravid no CVA tenderness and appearance of the vagina normal External Female Exam: normal appearance of the urethra; Negative for external lesion OB / External & Speculum: external exam normal Manual OB Exam: estimated gestational size appropriate and presentation cephalic Uterus Palpation: Negative for uterus tender Extremity normal to inspection Skin no rashes or lesions noted Psych Activity / Motor Behavior: appropriate eye contact Speech: normal speech Labs Labs Labs: Blood Type AB NEGATIVE Antibody Screen NEGATIVE Hct 32.9 % (37-47) L Hgb 10.8 g/dL (12.0-15.0) L Obstetrics US Syphilis Total Ab Non-reactive Rubella IgG Antibody Reactive (Nonreactive) Hep Bs Antigen Non-Reactive (Nonreactive) HIV 1&2 Antibody Non-Reactive (Nonreactive) Glucose 1 Hr 50 gm 118 mg/dL (70-140) Rhogam given: Yes Assessment & Plan (1) Spontaneous onset of labor: COMMENT: at 39+4 (2) Positive GBS test: PLAN: -initiate PCN prophylaxis/protocol (3) Rh negative state in antepartum period: COMMENT: Rhogam 28 wk, pp and prn bleeding PLAN: cord blood at delivery (4) Supervision of high risk , antepartum: COMMENT: PRR BING: 10/24/22 PC: Ayesha. Sp: Loida (5) Advanced maternal age during : COMMENT: Growth US 36 wk weekly nsts after 36 deliver at 40 growth: 77% on 10/03, 10/16 nl ZACHARY PLAN: Plan Patient presents IAL with positive SROM, questionable meconium at 39+4. Pain management: epidural GBS positive plan IV PCN. -Pedi at delivery for light mec. cat 1 tracing currently. Management of any complications: Rh negative -if not cervical change in 4 hours, will augment with pitocin I have reviewed the [facility] and made any clinically relevant updates. Dr. Donahue updated on POC and admission. concurs in primary midwifery management of patient. she is available.
[2022-10-21] MEDS: Penicillin G 3,000,000 Units 50 ML 100 UNITS IV ×3 (11:27→19:16)
[2022-10-21] MEDS: Lactated Ringers 1,000 ML 200 ML IV ×2 (13:55→18:43)
[2022-10-21] MEDS: Oxytocin 15 Units/NS 250ml 15 UNITS/250 ML IV.SOLN 2 UNITS IV (18:37)
--- NOTE | 2022-10-21 18:41 | PCM.PN.OB ---
Subjective Subjective comfortable with epidural. Objective Data Objective Data VSS. Vital Signs: Vital Signs Temp Pulse BP Pulse Ox 98.2 F 83 109/52 L 99 10/21/22 18:14 10/21/22 18:15 10/21/22 18:15 10/21/22 18:15 Weight: 176 lb Body Mass Index (BMI) 32.1 Intake & Output: Intake and Output for Last 24 Hours 10/19/22 10/20/22 10/21/22 23:59 23:59 23:59 Intake Total 1415.84 / 1415.84 Balance 1415.84 / 1415.84 Lab / Micro Data Result Diagrams: 10/21/22 07:00 Labs: Laboratory Results - last 24 hr 10/21/22 06:30: Vag Amniotic Fld Detect POSITIVE H 10/21/22 06:55: Chlam trachomat DNA PCR Negative, N.gonorrhoeae DNA (PCR) Negative 10/21/22 07:00: WBC 17.2 H, RBC 3.74 L, Hgb 10.8 L, Hct 32.9 L, MCV 88.0, MCH 28.9, MCHC 32.8, RDW Std Deviation 43.1, RDW Coeff of Vanessa 13.5, Plt Count 160, MPV 9.8, Immature Gran % (Auto) 0.900, Neut % (Auto) 78.8 H, Lymph % (Auto) 12.2 L, Barber % (Auto) 7.3, Eos % (Auto) 0.5, Baso % (Auto) 0.3, Absolute Neuts (auto) 13.6 H, Absolute Lymphs (auto) 2.10, Nucleated RBC % 0 10/21/22 07:00: Blood Type AB NEGATIVE, Antibody Screen NEGATIVE
--- NOTE | 2022-10-21 18:45 | CON.PCM_ITS ---
Consult Date of Consult: 10/21/22 Reason for Consult pt comfortable with epidural VSS. SVE to demonstrate +forebag, AROMd for clear fluid. /1. no caput, cephalic presentation. LOP. increased cervix on left side. side lying release bilaterally. Assessment & Plan Assessment/Plan (1) Spontaneous onset of labor: (2) Positive GBS test: (3) Rh negative state in antepartum period: (4) Advanced maternal age during : PLAN: Plan 42yo at 39+4, spontaneous labor, spontaneous ROM since 0200. protracted labor. current tracin FHT: Moderate variability reactive brief variables, with quick return to baseline. resolved category II strip currently category I tracing. [place]allen: [id number] Contractions reviewed tracing abnormalities since last note: brief variables.moderate v ariability. reassuring maternal and status A/P: protracted labor -AROM forebag -initiate Pitocin augmentation GBS positive, afebrile, clear fluid -continue on PCN Rowan MARIA notfied and agrees with above plan.
[2022-10-21] MEDS: Acetaminophen 500 MG Tablet PO (20:20)
[2022-10-21] MEDS: DiphenhydrAMINE 50 MG/ML Syringe IV (20:51)
--- NOTE | 2022-10-21 21:39 | PCM.PN.BLA ---
Progress Note Sent in for evaluation due to category 3 tracing. Position changing and cervical exam reveal significantly swollen anterior lip which was manually reduced and found to be ROP. Patient now made progress to 9 to 10 cm. Baseline is decreasing to 160 and showing minimal to moderate variability decelerations resolved and positive scalp stimulation. Continue close expectant management with Pitocin off. Coordinated care with nursing and certified nurse spun paste machine operator. Patient consented for both vacuum or vaginal delivery in case of indication.
[2022-10-22] VITALS (29 sets, daily range): BP systolic 102–134; BP diastolic 61–79; PULSE 70–99; RESP 14–18; TEMP 36.2–37.1; O2SAT 93–98
--- NOTE | 2022-10-22 00:24 | PLAC_PTH ---
PATIENT: NOAH OWENS LOC: [facility] U#:[id number] AGE/SX: 42/F ROOM: [facility] RE10/21/[address]: Gail Roberts CNM : 1980 BED: 1 DIS: 10/23/2022 SPEC #: [id number] RECD: 10/22/22 02:28 STATUS: MALCOLM REDennis #: [id number] RACHNA: 10/22/22 00:[address]: Gail Roberts DEPT: SURGICAL PATHOLOGY RECD BY: Ana Salter ENTERED: 10/23/22 11:08 SP TYPE: PLACENTA OTHR DR: Milka Primary Care Phys Tissues: Placenta, NOS Procedures: Surgery Specimen Level V HEADER OPERATION: Vaginal delivery PRE-OP DIAGNOSIS: Suspected chorioamnionitis, TISSUE SUBMITTED: Placenta MICROSCOPIC DIAGNOSIS Flores placenta (540 gm): Umbilical cord ? trivascular with no inflammation. Placental membranes ? acute chorioamnionitis and acute deciduitis. Placental disc ? Wilfrid-Kranthi change, mild chronic decidual inflammation and intervillous congestion. AM:nella 10/24/2022 MICROSCOPIC DESCRIPTION Slides are reviewed. GROSS DESCRIPTION SPECIMEN: PLACENTA / CLINICAL INFORMATION: A. Weight: 3.42 kg B. Gestational Age: 39 weeks C. Sex: Female PLACENTAL WEIGHT (POST FIXATION): 540 gm PLACENTAL DIMENSIONS: 17 x 16.5 x 2.5cms PLACENTAL SHAPE: Usual ovoid PLACENTAL WEIGHT FOR GESTATIONAL AGE: Within 10- 99th percentile. MEMBRANES - Present A. Insertion: Marginal B. Site of rupture from edge: At edge of placental disc C. Color of membrane: Bowman-redd D. Abnormalities: None UMBILICAL CORD - Present A. Color: Bowman-redd B. Insertion: Near central insertion C. Length: 44.5 cm D. Diameter: 1.5 cm E. Number of vessels: Three F. Abnormalities: None PLACENTAL DISC - Present A. Color of surface: Bowman-redd B. surface abnormalities: None C. Maternal cotyledons: Intact with minimal tears D. Attached retro placental clot: No clot E. Cut surface: Dark red and spongy F. Lesions: None G. Separate clot: Absent SECTIONS SUBMITTED: 1. Umbilical cord ( end notched) 2. Umbilical cord, placental end 3. Membrane roll 4. Placental disc, and maternal surfaces 5. Placental disc, and maternal surfaces 6. Placental disc, and maternal surfaces AM:nella 10/23/2022 TC:2 CPT: 44813
[2022-10-22] MEDS: Methylergonovine 0.2 MG/ML Ampul IM (00:35)
--- NOTE | 2022-10-22 00:39 | OP.PCM_ITS ---
Assessment & Plan (1) (spontaneous vaginal delivery): COMMENT: 39+4 SROM/IAL. suspected chorio. girl. LC (2) Chorioamnionitis: COMMENT: amp/gent continue x1 dose amp post placenta to pathology cord gases (3) Rh negative state in antepartum period: COMMENT: Rhogam 28 wk, pp and prn bleeding (4) Supervision of high risk , antepartum: COMMENT: PRR BING: 10/24/22 PC: Ayesha. Sp: Loida (5) Edema of vulva: COMMENT: Toradol oxycotin PRN ice araujo in place x24 hours Maternal Data Information BING Calculator Estimated Delivery Date Method Current WG Current Estimate 10/24/22 LMP (Certain) 39w 5d Final BING Source: LMP Gestational age: 39+5 Vaginal Delivery Maternal Presentation Maternal Presentation: Active Labor and Spontaneous Rupture of Membranes Operative Information Date of Procedure: 10/22/22 Pre-Operative Diagnosis: Post-Operative Diagnosis: Type of Anesthesia: Epidural Drain: Araujo to straight drain Estimated Blood Loss: 400 Time of Delivery: 00:24 Findings Description of Procedure: Patient began pushing and delivered the head in the OA to FRANSICO presentation. The head was delivered atraumatically . The anterior and posterior shoulders delivered without complication followed by the rest of the and the infant was placed on the maternal abdomen. Delayed cord clamping was employed for approximately 60 seconds. Cord was clamped and cut and gentle traction was applied to the cord and the placenta delivered spontaneously immediately following it was noted to be intact with three-vessel cord. cord gases obtained for recurrent decelerations prior to delivery. pedi/rt in room. The perineum and vagina were inspected and noted to have no laceration. EBL was 400. Pat ient and infant tolerated delivery well. Time of Membrane Rupture: 0200 Amniotic Fluid Description: Clear Placental Delivery Description: Spontaneous Placenta Disposition: Sent to Pathology Cord Vessel Description: 3 Vessels Cord Entanglement: None Cord Gases: ABG and VBG Infant A Gender: Female (1 minute): 9 (5 minute): 10 Delayed Cord Clamping: Yes Post Vaginal Delivery Medications Given After Delivery: IV Pitocin and IM Methergin Episiotomy Description: None Laceration: None Complication Complications: - (vulva edema) Procedures Urinary/Genital [id number]: [id number] Vaginal Delivery global pkg (CNM DELIVERY)
--- NOTE | 2022-10-22 01:02 | DCINST_ITS ---
Discharge Instructions Diet Discharge Diet: No restrictions Activity Discharge Activity: May Not Drive and May Shower May resume sexual activity in: 6 weeks Weight Bearing Status: Full weight bearing Dressing / Incision Call your doctor if your incision/area has: Sudden Increased Bleeding, Increased Pain/ Swelling and Foul Smelling Discharge Call your doctor if you observe: Fever of 101 or Higher, Numbness or Tingling, Change in Color, Inability to urinate, Inability to have a bowel movement, Using more than 1 pad per hour, Shortness of breath, Dizziness, Fainting spells, Chest pain, Calf discomfort and Uncontrolled pain Follow Up Care Please Follow Up With: Gail Roberts CNM When: 6 weeks , please call office to make an appointment. Congratulations on the of your baby! Test Results: Test results from this visit will be discussed in further detail at your follow- up appointment, if applicable. Discharge Plan Admission Admit Date/Time: 10/21/22 06:50 Attending Provider: Gail Roberts Primary Care Provider: Care Physician,Milka Primary Discharge Orders/Prescriptions Prescriptions: No Action magnesium citrate 100 mg capsule 200 mg PO DAILY potassium chloride 20 mEq tablet,ER particles/crystals 20 meq PO ONCE Qty: 1 0RF vit,[id number] 1 TABLET tablet 1 tab PO DAILY loratadine 10 mg Tablet 10 mg PO DAILY Referrals / Follow Up: Care Physician,No Primary [Primary Care Provider] - Disposition Disposition (needs filled in before D/C Order can be placed): Home, Self Care
[2022-10-22] MEDS: Oxytocin 15 Units/NS 250ml 15 UNITS/250 ML IV.SOLN 83 UNITS IV (01:03)
[2022-10-22] MEDS: Ketorolac 10 MG Tablet PO ×4 (01:32→23:11)
[2022-10-22 02:35] LABS: Pathology Specimen OB SEE PATHOLOGY REPORT
[2022-10-22] MEDS: Acetaminophen 500 MG Tablet 1000 MG PO ×3 (03:39→21:08)
--- NOTE | 2022-10-22 04:00 | NURSING ---
Report received from Izabela SANTIAGO, taking over pt care at this time.
[2022-10-22] MEDS: 0.9% Saline Lock 10 ML Syringe IV (04:35)
--- NOTE | 2022-10-22 11:42 | PCM.PN.OB ---
Subjective Subjective Patient doing well without complaints. Tolerating PO. Ambulating well, araujo draining. pain well managed with PO medications. Feeding well. Denies chest pain, shortness of breath, calf pain/swelling, fevers, chills, lightheadedness. Objective Data Objective Data Vital Signs: Vital Signs Temp Pulse Resp BP Pulse Ox O2 Del Method 98 F 70 18 111/62 97 Room Air 10/22/22 08:19 10/22/22 08:19 10/22/22 08:19 10/22/22 08:19 10/22/22 04:39 10/22/22 08:19 Oxygen Delivery Method Room Air Weight: 176 lb Body Mass Index (BMI) 32.1 Intake & Output: Intake and Output for Last 24 Hours 10/20/22 10/21/22 10/22/22 23:59 23:59 23:59 Intake Total 3087.35 / 3087.35 1537.3 / 1537.3 Output Total 1800 / 1800 Balance 3087.35 / 3087.35 -262.7 / -262.7 Lab / Micro Data Attestation: I reviewed the patient's lab results. Result Diagrams: 10/21/22 07:00 Labs: Laboratory Results - last 24 hr 10/22/22 02:43: Screen NEGATIVE, Baby's Blood Type B POSITIVE, Baby's LANA NEGATIVE Physical Exam Narrative breast benign, abdomen soft.fundus firm at 1-u. lochia rubra. vulva +edematous. araujo draining clear yellow urine. Const alert, oriented x3 and no apparent distress Assessment & Plan (1) Edema of vulva: COMMENT: Toradol oxycodone PRN ice araujo in place x24 hours PLAN: to remove araujo 24 hours from delivery time if edema is improved. continue ATC ice to perineum (2) (spontaneous vaginal delivery): COMMENT: 39+4 SROM/IAL. suspected chorio. girl. LC (3) Chorioamnionitis: COMMENT: amp/gent continue x1 dose amp post placenta to pathology cord gases PLAN: stable. afebrile. PLAN: Plan s/p PPD # 0 1. routine post delivery care 2. breast feeding- support given 3. rh negative- rhogam as indicated. 4. rubella immune 5. araujo x24 hours
[2022-10-22] MEDS: Senna/Docusate Sodium 1 Tablet PO (12:11)
[2022-10-23 01:16] VITALS: BP 105/57; PULSE 66; RESP 16; TEMP 36.7; O2SAT 97
[2022-10-23] MEDS: Acetaminophen 500 MG Tablet 1000 MG PO ×2 (03:16→09:15)
[2022-10-23] MEDS: Ketorolac 10 MG Tablet PO ×2 (05:03→10:51)
[2022-10-23 07:58] VITALS: BP 104/65; PULSE 71; RESP 16; TEMP 36.3
--- NOTE | 2022-10-23 10:43 | PCM.PN.OB ---
Subjective Subjective Patient doing well without complaints. Tolerating PO. Ambulating and voiding without difficulty following araujo catheter removal. Feeding well. Denies chest pain, shortness of breath, calf pain/swelling, fevers, chills, lightheadedness. Objective Data Objective Data Vital Signs: Vital Signs Temp Pulse Resp BP Pulse Ox O2 Del Method 97.4 F L 71 16 104/65 97 Room Air 10/23/22 07:58 10/23/22 07:58 10/23/22 07:58 10/23/22 07:58 10/23/22 01:16 10/23/22 07:58 Oxygen Delivery Method Room Air Weight: 176 lb Body Mass Index (BMI) 32.1 Intake & Output: Intake and Output for Last 24 Hours 10/21/22 10/22/22 10/23/22 23:59 23:59 23:59 Intake Total 3087.35 / 3087.35 2237.3 / 2237.3 Output Total 2700 / 2700 1700 / 1700 Balance 3087.35 / 3087.35 -462.7 / -462.7 -1700 / -1700 Lab / Micro Data Attestation: I reviewed the patient's lab results. Result Diagrams: 10/21/22 07:00 Physical Exam Const alert, oriented x3 and no apparent distress HEENT normocephalic Resp normal respiratory effort, normal air movement and no retractions Cardio regular rate and regular rhythm GI normal to inspection, nondistended, normoactive bowel sounds GI Narrative: fundus firm 1 below u, lochia rubra, no clots. Narrative: vulva continues to be edematous, however greatly improved since delivery Extremity normal to inspection and full ROM Neuro oriented x3 Psych mental status grossly normal Assessment & Plan (1) Edema of vulva: COMMENT: greatly improved from delivery continue Toradol, transition to motrin at home. ice (2) (spontaneous vaginal delivery): COMMENT: 39+4 SROM/IAL. suspected chorio. girl. LC (3) Chorioamnionitis: COMMENT: amp/gent continue x1 dose amp post placenta to pathology cord gases VSS, no s/sx of uterine infection PLAN: Plan s/p PPD # 1 1. routine post delivery care 2. breast feeding- support given 3. rh positive 4. rubella immune 5. stable for d/c
[2022-10-23] MEDS: Senna/Docusate Sodium 1 Tablet PO (11:56)
[2022-10-23 12:15] VITALS: BP 96/74; PULSE 91; RESP 16; TEMP 36.1
== END 2022-10-23 13:05 | disposition home or self-care (01) | DRG 805 ==
LOC: WPOUT 07:00 → WP 07:00
PROVIDERS: Admitting Provider Registered Nurse; Visit Provider Registered Nurse
DX: O76 Abnormality in fetal heart rate and rhythm complicating labor and delivery (principal); Z37.0 Single live birth; O41.1230 Chorioamnionitis, third trimester, not applicable or unspecified; O26.893 Other specified pregnancy related conditions, third trimester; O42.92 Full-term premature rupture of membranes, unspecified as to length of time between rupture and onset of labor; Z67.31 Type AB blood, Rh negative; O99.824 Streptococcus B carrier state complicating childbirth; O34.73 Maternal care for abnormality of vulva and perineum, third trimester; N90.89 Other specified noninflammatory disorders of vulva and perineum; Z3A.39 39 weeks gestation of pregnancy
CPT/HCPCS: 59025; 59050; 84112; 85025; 85461; 86850; 86900; 86901; 87491; 87591; 88307; 99221; J7120; A4216; G0378; J2790

== ENCOUNTER → 2023-11-09 | Outpatient (CLI) | payer SELFPAY ==
--- OUTSIDE RECORDS SUMMARY | 2023-11-09 19:24 | XMS RPT_ITS | CCD ---
Author Name Unknown Address [address] [place] [address] [address] [place] [address] Organization [facility] Care Team Providers Care Settlement Worker Name Role Phone LEIDYSJ Admitting Unavailable LEIDY, SJ Almodovar Attending Unavailable LEIDY, SJ Almodovar Primary Care Unavailable Problems Problem Classification Problem Date Documented Da te Episodic/Chronic Unclassified (2 sources) Invalid ICD10 Description; Translations: [Invalid ICD10 Description] Onset: 08-05-2020 Unclassified (1 source) COVID-19; Translations: [COVID-19] Onset: 08-05-2020 Results Test Name Value Interpretation Reference Range Facil ity Encounters Encounter Date Encounter Type Care Provider Facility Start: 08-05-2020 End: 08-05-2020 Patient encounter procedure SJ Almodovar LEIDY [facility] Payers Date Payer Category Payer Unknown [id number] Unknown [id number] Summary Purpose Family History No Family History Records FoundNo Family History Records Found Advance Directives No Advanced Directives Records FoundNo Advanced Directives Records Found Additional Source Comments INFORMATION SOURCE (unrecogn ized section and content) DATE CREATED AUTHOR AUTHOR'S ORGANIZ ATION 08/12/2020 [facility] FOR RECORDS PERTAINING TO PATIENTS WHO ARE OR HAVE BEEN ENROLLED IN A CHEMICAL DEPENDENCY/SUBSTANCEABUSE PROGRAM, SOME INFORMATION MAY BE OMITTED. This clinical summary was aggregated from multiple sources. Caution should be exercised in using it in the provision of clinical care. This summary normalizes information from multiple sources, and as a consequence, information in this document may materially change the coding, format and clinical context of patient data. In addition, data may be omitted in some cases. CLINICAL DECISIONS SHOULD BE BASED ON THE PRIMARY CLINICAL RECORDS. [employer] provides no warranty or guarantee of the accuracy or completeness of information in this document.
[2023-11-13 07:08] LABS: Chlamydia By Nucleic Acid AMP Negative (Negative); Gonococcus By Nucleic Acid AMP Negative (Negative)
== END | disposition home or self-care (01) ==
PROVIDERS: Referring Provider Registered Nurse; Visit Provider Registered Nurse
DX: Z34.90 Encounter for supervision of normal pregnancy, unspecified, unspecified trimester (principal)
CPT/HCPCS: 87086; 87491; 87591

== ENCOUNTER → 2024-01-23 | Outpatient (CLI) | payer SELFPAY ==
--- NOTE | 2024-01-23 15:18 | US_ITS ---
STUDY: SECOND AND THIRD TRIMESTER OBSTETRICAL ULTRASOUND REASON FOR EXAM: Female, 43 years old anatomy LMP: September 11, 2023. TECHNIQUE: Transabdominal and Transvaginal TECHNICAL QUALITY: Adequate. PRIOR ULTRASOUND: None. FINDINGS: There is a single intrauterine fetus. The fetus is in a breech presentation. There is demonstrated cardiac activity with a heart rate of 145 bpm. There is a normal amniotic fluid volume. The largest amniotic fluid pocket measures 4.4 cm. The amniotic fluid index (ZACHARY) is within normal limits. The placenta is posterior in location and is not low lying. The tip of the placenta is a 2.3 cm from the cervical os. There are Grade 0 placental changes. The cervix measures 4.8 cm in length. The adnexal regions are not visualized. BIOMETRY: BPD: 4.43 cm: 19 weeks, 3 days HC: 16.83 cm: 19 weeks, 3 days AC: 14.78 cm: 20 weeks, 0 days FL: 2.85 cm: 18 weeks, 5 days CI: 75.5% FL/BPD: 64.3% FL/HC: FL/AC: 19.3% HC/AC: 1.14 age by current US: 19 weeks, 3 days. BING by current US: June 15, 2024. Estimated weight: 295 grams, +/- 44 grams, 64 %. Age by LMP: 19 weeks, 1 days. BING by LMP: June 17, 2024. ANATOMY: Gender: Indeterminant Cranium: Normal lateral ventricles. Normal choroid plexus. Normal cerebellum. Normal cisterna magna. Normal face, nose and lips. Chest: Normal 4-chamber heart. Abdomen/Pelvis: Normal diaphragm. Normal stomach. Normal abdominal wall. Normal cord insertion. Normal 3 vessel cord. Normal kidneys. Normal bladder. Spine: Normal cervical spine. Normal thoracic spine. Normal lumbar spine. Normal sacrum. Extremities: Normal bilateral upper extremities. Normal bilateral lower extremities. IMPRESSION: Single live intrauterine gestation with a mean gestational age of 19 weeks and 3 days. Electronically Signed: Freddy Hoffman MD at 13:48 EDT , STUDY: FIRST TRIMESTER OBSTETRICAL ULTRASOUND REASON FOR EXAM: Female, 43 years old . Cervical length. LMP: September 11, 2023. TECHNIQUE: Transvaginal TECHNICAL QUALITY: Adequate. PRIOR ULTRASOUND: None. FINDINGS: The cervical length measures 4.8 cm. US/OB Anatomy w/ Transvaginal IMPRESSION: Cervical length measures 4.8 cm. Electronically Signed: Freddy Hoffman MD at 13:48 EDT ,
== END | disposition home or self-care (01) ==
LOC: US 15:17
PROVIDERS: Referring Provider Registered Nurse; Visit Provider Registered Nurse
DX: Z34.90 Encounter for supervision of normal pregnancy, unspecified, unspecified trimester (principal)
CPT/HCPCS: 76805; 76817

== ENCOUNTER → 2024-02-27 | Outpatient (CLI) | payer SELFPAY ==
[2024-02-27 12:48] LABS: Absolute Lymphocyte Count 1.12 X10^3/uL (0.83-4.51); Basophil# 0.04 X10^3/uL; Basophil% 0.5 % (0-1); Eosinophil# 0.03 X10^3/uL; Eosinophils% 0.4 % (0-5); Hematocrit 28.9 % (37-47); Hemoglobin 9.4 g/dL (12.0-15.0); Lymphocyte # 1.12 X10^3/ul (0.83-4.51); Lymphocyte % 14.1 % (19-41); Mean Corp Hgb Conc 32.5 g/dL (32-36); Mean Corpuscular Hgb 27.2 pg (27.0-32.0); Mean Corpuscular Volume 83.8 fL (81-99); Mean Platelet Vol. 9.7 fl (6.2-12.0); Monocyte# 0.68 X10^3/uL; Monocyte% 8.6 % (0-10); NRBC Flagged by Analyzer 0 % (0-5); Neutrophil # 6.01 X10^3/uL (2.7-7.7); Neutrophil % 75.9 % (47-70); Platelet Count 206 K/mm3 (150-450); RBC Distribution Width CV 12.6 % (11.6-14.6); RBC Distribution Width SD 38.1 fl (35.1-43.9); Red Blood Count 3.45 M/mm3 (4.2-5.4); White Blood Count 7.9 K/mm3 (4.4-11.0)
[2024-02-27 16:24] LABS: HIV - WCH Non-Reactive (Nonreactive); Hepatitis B Surface Antigen Non-Reactive (Nonreactive); Hepatitis C Antibody Non-Reactive (Nonreactive); Rubella IgG Reactive (Nonreactive); Syphilis Antibodies Non-reactive
== END | disposition home or self-care (01) ==
LOC: LAB 11:58
PROVIDERS: Registered Nurse; Referring Provider Nurse Practitioner Women's Health; Visit Provider Nurse Practitioner Women's Health
DX: Z34.90 Encounter for supervision of normal pregnancy, unspecified, unspecified trimester (principal)
CPT/HCPCS: 36415; 85025; 86703; 86762; 86780; 86803; 86850; 86900; 86901; 87340

== ENCOUNTER 2024-03-24 11:20 | Outpatient (CLI) | payer SELFPAY ==
--- NOTE | 2024-03-24 11:37 | US_ITS ---
STUDY: SECOND AND THIRD TRIMESTER OBSTETRICAL ULTRASOUND - LIMITED REASON FOR EXAM: Female, 43 years old maternal infection -- w/NST LMP: September 11, 2023. PRIOR ULTRASOUND: Comparison is made with prior study dated January 23, 2024. TECHNIQUE: Transabdominal TECHNICAL QUALITY: Adequate. FINDINGS: There is a single intrauterine fetus. The fetus is in a cephalic presentation. There is demonstrated cardiac activity with a heart rate of 147 bpm. There is a normal amniotic fluid volume. The largest amniotic fluid pocket measures 5.45 cm. The amniotic fluid index (ZACHARY) is 13.3 cm. The placenta is posterior in location and is not low lying. There are Grade 0 placental changes. The cervix measures 5.4 cm in length. BIOMETRY: BPD: 7.43 cm: 29 weeks, 6 days HC: 27.3 cm: 29 weeks, 5 days AC: 25.53 cm: 29 weeks, 5 days FL: 4.9 cm: 26 weeks, 3 days Age by LMP: 27 weeks, 6 days. BING by LMP: June 17, 2024. age by prior US: 28 weeks, 1 days. BING by prior US: June 15, 2024. age by current US: 29 weeks, 0 days. BING by current US: June 09, 2024. Estimated weight: 1277 grams, +/- 192 grams, 71 percentile. US/OB Limited With Biometrics IMPRESSION: Single live intrauterine gestation with a mean gestational age of 28 weeks and 1 day. The measurements obtained today fall within the normal expected range Electronically Signed: Freddy Hoffman MD at 14:05 EDT ,
[2024-03-24 11:39] VITALS: BMI 28.5
[2024-03-24 12:23] LABS: Absolute Lymphocyte Count 0.77 X10^3/uL (0.83-4.51); Absolute Neutrophil Count 7.7 X10^3/uL (2.0-7.7); Basophil# 0.03 X10^3/uL; Basophil% 0.3 % (0-1); Eosinophil# 0.05 X10^3/uL; Eosinophils% 0.6 % (0-5); Hematocrit 25.4 % (37-47); Hemoglobin 8.4 g/dL (12.0-15.0); Lymphocyte # 0.77 X10^3/ul (0.83-4.51); Lymphocyte % 8.6 % (19-41); Mean Corp Hgb Conc 33.1 g/dL (32-36); Mean Corpuscular Hgb 26.7 pg (27.0-32.0); Mean Corpuscular Volume 80.6 fL (81-99); Mean Platelet Vol. 9.5 fl (6.2-12.0); Monocyte# 0.38 X10^3/uL; Monocyte% 4.3 % (0-10); NRBC Flagged by Analyzer 0 % (0-5); Neutrophil # 7.66 X10^3/uL (2.7-7.7); Neutrophil % 85.8 % (47-70); Platelet Count 168 K/mm3 (150-450); RBC Distribution Width CV 13.8 % (11.6-14.6); RBC Distribution Width SD 39.9 fl (35.1-43.9); Red Blood Count 3.15 M/mm3 (4.2-5.4); White Blood Count 8.9 K/mm3 (4.4-11.0)
[2024-03-24 13:01] VITALS: BP 114/59; PULSE 94
[2024-03-24 13:02] LABS: ALB/GLOB Ratio 0.5 RATIO (0.9-2.4); AST(SGOT) 47 U/L (15-37); Alanine Aminotransfer ALT/SGPT 40 U/L (13-56); Albumin, Serum 2.1 g/dL (3.2-5.0); Alkaline Phosphatase 178 U/L (45-117); Anion Gap 7 (5-15); BUN 8 mg/dL (7-18); BUN/Creat Ratio 17.3 RATIO (10-20); Calcium,Total 7.8 mg/dL (8.5-10.1); Chloride 106 mmol/L (98-107); Creatinine, Serum 0.46 mg/dL (0.55-1.02); EST Glomerular Filtration Rate 158 mL/min (>60); Est Glom Filt Rate - Afr Amer 191 mL/min (>60); Estimated Creatinine Clearance 159.91 ml/min; Glucose 114 mg/dL (74-106); Potassium 3.2 mmol/L (3.5-5.1); Protein, Total 6.1 g/dL (6.4-8.2); Sodium Level 135 mmol/L (136-145)
[2024-03-24 13:10] LABS: Mucous, Urine 0 SEEN /hpf (<or=2+); Red Blood Cells-Urine 0 SEEN /hpf (0-5)
[2024-03-24 13:25] LABS: Color, Urine Yellow (Yellow); Glucose, Dipstick Normal (Normal); Ketone-Dipstick Negative (Negative); Leukocyte Esterase-Dipstick 25 /ul (Negative); Nitrite-Dipstick Negative (Negative); Occult Blood-Urine 10 /ul (Negative); Protein-Dipstick 30 mg/dl (Negative); Specific Gravity, Urine 1.015 (1.002-1.030); Urine Bilirubin Dipstick Negative (Negative); Urine Clarity Sl. Cloudy (Clear); Urine Urobilinogen 4 mg/dl (Normal)
[2024-03-24 13:34] LABS: Bacteria 1+ /hpf (None Seen); Squamous Epithelial Cells - UA 0-5 SEEN /hpf (5-10); White Blood Cells 0-5 SEEN /hpf (0-5)
[2024-03-24 14:24] VITALS: BP 116/59; PULSE 100
[2024-03-24] MEDS: Acetaminophen 500 MG Tablet 1000 MG PO (14:52)
[2024-03-24] MEDS: Potassium Chloride Oral Tablet 20 MEQ 40 MEQ PO (14:52)
[2024-03-24] MEDS: AMOXICILLIN 500 MG CAPSULE PO (15:14)
[2024-03-24 16:15] VITALS: BP 112/56; PULSE 95; PULSE 99; RESP 16; TEMP 36.7; O2SAT 97
[2024-03-24 16:44] LABS: Absolute Lymphocyte Count 0.83 X10^3/uL (0.83-4.51); Absolute Neutrophil Count 7.2 X10^3/uL (2.0-7.7); Basophil# 0.02 X10^3/uL; Basophil% 0.2 % (0-1); Eosinophil# 0.04 X10^3/uL; Eosinophils% 0.5 % (0-5); Hematocrit 25.9 % (37-47); Hemoglobin 8.5 g/dL (12.0-15.0); Lymphocyte # 0.83 X10^3/ul (0.83-4.51); Lymphocyte % 9.8 % (19-41); Mean Corp Hgb Conc 32.8 g/dL (32-36); Mean Corpuscular Hgb 26.4 pg (27.0-32.0); Mean Corpuscular Volume 80.4 fL (81-99); Mean Platelet Vol. 9.2 fl (6.2-12.0); Monocyte# 0.31 X10^3/uL; Monocyte% 3.7 % (0-10); NRBC Flagged by Analyzer 0 % (0-5); Neutrophil # 7.19 X10^3/uL (2.7-7.7); Neutrophil % 85.2 % (47-70); Platelet Count 155 K/mm3 (150-450); RBC Distribution Width CV 13.8 % (11.6-14.6); RBC Distribution Width SD 39.4 fl (35.1-43.9); Red Blood Count 3.22 M/mm3 (4.2-5.4); White Blood Count 8.4 K/mm3 (4.4-11.0)
[2024-03-24 17:06] LABS: ALB/GLOB Ratio 0.5 RATIO (0.9-2.4); AST(SGOT) 44 U/L (15-37); Alanine Aminotransfer ALT/SGPT 42 U/L (13-56); Albumin, Serum 2.1 g/dL (3.2-5.0); Alkaline Phosphatase 186 U/L (45-117); Anion Gap 6 (5-15); BUN 6 mg/dL (7-18); Calcium,Total 7.9 mg/dL (8.5-10.1); Chloride 106 mmol/L (98-107); EST Glomerular Filtration Rate 144 mL/min (>60); Est Glom Filt Rate - Afr Amer 174 mL/min (>60); Estimated Creatinine Clearance 147.12 ml/min; Glucose 135 mg/dL (74-106); Protein, Total 6.1 g/dL (6.4-8.2); Sodium Level 135 mmol/L (136-145)
--- NOTE | 2024-03-26 21:30 | OB.TRI.PN ---
Progress Notes Date of Service: 03/26/24 Progress Note: Patient presents for triage evaluation secondary to recurrent fevers, diagnosed with lyme disesae. serial labs drawn todya and afebrile but elevated liver enzymes- stable and only mildly high, normal platelets and blood pressures. FHT: 140 Moderate variability reactive no decelerations category I tracing [place]: no regular Contractions Assessment and plan: lyme disease in , growth US WNL Reactive NST, reassuring maternal and status patient discharged to home to follow-up as scheduled, plan repeat liver enzymes at next visit. See problem list details for additional plan information. Laboratory Studies: Laboratory Tests 03/24/24 03/24/24 03/24/24 Range/Units 16:20 12:20 12:00 WBC 8.4 8.9 (4.4-11.0) K/mm3 RBC 3.22 L 3.15 L (4.2-5.4) M/mm3 Hgb 8.5 L 8.4 L (12.0-15.0) g/dL Hct 25.9 L 25.4 L (37-47) % MCV 80.4 L 80.6 L (81-99) fL MCH 26.4 L 26.7 L (27.0-32.0) pg MCHC 32.8 33.1 (32-36) g/dL RDW Std Deviation 39.4 39.9 (35.1-43.9) fl RDW Coeff of Vanessa 13.8 13.8 (11.6-14.6) % Plt Count 155 168 (150-450) K/mm3 MPV 9.2 9.5 (6.2-12.0) fl Immature Gran % (Auto) 0.600 0.400 (0.0-0.9) % Neut % (Auto) 85.2 H 85.8 H (47-70) % Lymph % (Auto) 9.8 L 8.6 L (19-41) % [place] % (Auto) 3.7 4.3 (0-10) % Eos % (Auto) 0.5 0.6 (0-5) % Baso % (Auto) 0.2 0.3 (0-1) % Absolute Neuts (auto) 7.2 7.7 (2.0-7.7) X10^3/uL Absolute Lymphs (auto) 0.83 0.77 L (0.83-4.51) X10^3/uL Nucleated RBC % 0 0 (0-5) % Sodium 135 L 135 L (136-145) mmol/L Potassium 3.0 L 3.2 L (3.5-5.1) mmol/L Chloride 106 106 (98-107) mmol/L Carbon Dioxide 23.0 22.0 (21.0-32.0) mmol/L Anion Gap 6 7 (5-15) BUN 6 L 8 (7-18) mg/dL Creatinine 0.50 L 0.46 L (0.55-1.02) mg/dL Estim Creat Clear Calc 147.12 159.91 ml/min Est GFR (MDRD) Af Amer 174 191 (>60) mL/min Est GFR (MDRD) Non-Af 144 158 (>60) mL/min BUN/Creatinine Ratio 12.0 17.3 (10-20) RATIO Glucose 135 H 114 H (74-106) mg/dL Calcium 7.9 L 7.8 L (8.5-10.1) mg/dL Total Bilirubin 0.80 0.70 (0.20-1.00) mg/dL AST 44 H 47 H (15-37) U/L ALT 42 40 (13-56) U/L Alkaline Phosphatase 186 H 178 H (45-117) U/L Total Protein 6.1 L 6.1 L (6.4-8.2) g/dL Albumin 2.1 L 2.1 L (3.2-5.0) g/dL Globulin 4.0 4.0 (2.2-4.2) g/dL Albumin/Globulin Ratio 0.5 L 0.5 L (0.9-2.4) RATIO Urine Color Yellow (Yellow) Urine Clarity Sl. Cloudy (Clear) Urine pH 6.0 (5.0 - 8.0) Ur Specific [place] 1.015 (1.002-1.030) Urine Protein 30 H (Negative) mg/dl Urine Glucose (UA) Normal (Normal) mg/dl Urine Ketones Negative (Negative) mg/dl Urine Occult Blood 10 H (Negative) /ul Urine Nitrite Negative (Negative) Urine Bilirubin Negative (Negative) mg/dL Urine Urobilinogen 4 H (Normal) mg/dl Ur Leukocyte Esterase 25 H (Negative) /ul Urine RBC 0 SEEN (0-5) /hpf Urine WBC 0-5 SEEN (0-5) /hpf Ur Squamous Epith Cells 0-5 SEEN (5-10) /hpf Urine Bacteria 1+ (None Seen) /hpf Urine Mucus 0 SEEN (<or=2+) /hpf Charges/Coding Procedures Urinary/Genital [id number]: [id number] non-stress test Interp Assessment & Plan (1) Lyme disease: COMMENT: amoxicillin per PCP, intermittent fevers x 1 month. recommend repeat LFTs and cbc as they were borderline in triage last week of march (2) Anemia: QUALIFIERS: Anemia type: iron deficiency Iron deficiency anemia type: other iron deficiency Qualified Code(s): D50.8 - Other iron deficiency anemias COMMENT: add Fe, NEEDS IRON STUDIES AT NEXT VISIT
== END 2024-03-24 17:53 | disposition home or self-care (01) ==
LOC: WPOUT 11:30 → WP 11:30
PROVIDERS: Referring Provider Obstetrics & Gynecology; Visit Provider Obstetrics & Gynecology
DX: O98.819 Other maternal infectious and parasitic diseases complicating pregnancy, unspecified trimester (principal); A69.20 Lyme disease, unspecified; O99.019 Anemia complicating pregnancy, unspecified trimester; D50.8 Other iron deficiency anemias; Z3A.00 Weeks of gestation of pregnancy not specified
CPT/HCPCS: 36415; 59050; 76816; 80053; 81001; 85025; 87086; 99221; G0378

== ENCOUNTER → 2024-03-27 | Outpatient (CLI) | payer SELFPAY ==
[2024-03-27 10:52] LABS: Absolute Lymphocyte Count 1.14 X10^3/uL (0.83-4.51); Basophil# 0.02 X10^3/uL; Basophil% 0.3 % (0-1); Eosinophil# 0.06 X10^3/uL; Eosinophils% 0.9 % (0-5); Hematocrit 28.4 % (37-47); Hemoglobin 8.9 g/dL (12.0-15.0); Lymphocyte # 1.14 X10^3/ul (0.83-4.51); Mean Corp Hgb Conc 31.3 g/dL (32-36); Mean Corpuscular Hgb 25.9 pg (27.0-32.0); Mean Corpuscular Volume 82.8 fL (81-99); Mean Platelet Vol. 9.9 fl (6.2-12.0); Monocyte# 0.49 X10^3/uL; Monocyte% 7.3 % (0-10); NRBC Flagged by Analyzer 0 % (0-5); Neutrophil # 4.95 X10^3/uL (2.7-7.7); Neutrophil % 73.8 % (47-70); Platelet Count 190 K/mm3 (150-450); RBC Distribution Width SD 41.4 fl (35.1-43.9); Red Blood Count 3.43 M/mm3 (4.2-5.4); White Blood Count 6.7 K/mm3 (4.4-11.0)
[2024-03-27 11:19] LABS: Glucose Challenge Gest 1H 50g 129 mg/dL (70-140)
[2024-03-27 11:34] LABS: ALB/GLOB Ratio 0.6 RATIO (0.9-2.4); AST(SGOT) 40 U/L (15-37); Alanine Aminotransfer ALT/SGPT 44 U/L (13-56); Albumin, Serum 2.3 g/dL (3.2-5.0); Alkaline Phosphatase 186 U/L (45-117); Anion Gap 5 (5-15); BUN 7 mg/dL (7-18); BUN/Creat Ratio 13.4 RATIO (10-20); Calcium,Total 8.3 mg/dL (8.5-10.1); Chloride 105 mmol/L (98-107); Creatinine, Serum 0.52 mg/dL (0.55-1.02); EST Glomerular Filtration Rate 137 mL/min (>60); Est Glom Filt Rate - Afr Amer 166 mL/min (>60); Ferritin 13 ng/mL (8-252); Globulin 3.8 g/dL (2.2-4.2); Glucose 123 mg/dL (74-106); Iron 53 ug/dL (50-170); Iron Binding Capacity,Total 534 ug/dL (250-450); PERCENT IRON SATURATION 9.9 % (15.0-55.0); Potassium 4.3 mmol/L (3.5-5.1); Protein, Total 6.1 g/dL (6.4-8.2); Sodium Level 138 mmol/L (136-145)
[2024-03-27 11:51] LABS: HIV - WCH Non-Reactive (Nonreactive); Syphilis Antibodies Non-reactive
== END | disposition home or self-care (01) ==
LOC: PAVLAB 09:45 → LAB 09:55
PROVIDERS: Nurse Practitioner Women's Health; Referring Provider Obstetrics & Gynecology; Visit Provider Obstetrics & Gynecology
DX: O98.812 Other maternal infectious and parasitic diseases complicating pregnancy, second trimester (principal); Z3A.24 24 weeks gestation of pregnancy; A69.20 Lyme disease, unspecified; O09.92 Supervision of high risk pregnancy, unspecified, second trimester; Z13.1 Encounter for screening for diabetes mellitus
CPT/HCPCS: 36415; 80053; 82728; 82950; 83540; 83550; 85025; 86703; 86780; 86850; 86900; 86901

== ENCOUNTER → 2024-04-23 | Outpatient (CLI) | payer SELFPAY ==
[2024-04-23 14:53] LABS: Absolute Lymphocyte Count 2.37 X10^3/uL (0.83-4.51); Absolute Neutrophil Count 8.1 X10^3/uL (2.0-7.7); Basophil# 0.05 X10^3/uL; Basophil% 0.4 % (0-1); Eosinophil# 0.13 X10^3/uL; Eosinophils% 1.1 % (0-5); Hematocrit 29.1 % (37-47); Hemoglobin 9.2 g/dL (12.0-15.0); Lymphocyte # 2.37 X10^3/ul (0.83-4.51); Lymphocyte % 20.4 % (19-41); Mean Corp Hgb Conc 31.6 g/dL (32-36); Mean Corpuscular Hgb 25.1 pg (27.0-32.0); Mean Corpuscular Volume 79.5 fL (81-99); Mean Platelet Vol. 9.5 fl (6.2-12.0); Monocyte# 0.94 X10^3/uL; Monocyte% 8.1 % (0-10); NRBC Flagged by Analyzer 0 % (0-5); Neutrophil # 8.08 X10^3/uL (2.7-7.7); Neutrophil % 69.4 % (47-70); Platelet Count 211 K/mm3 (150-450); RBC Distribution Width CV 14.4 % (11.6-14.6); RBC Distribution Width SD 41.3 fl (35.1-43.9); Red Blood Count 3.66 M/mm3 (4.2-5.4); White Blood Count 11.6 K/mm3 (4.4-11.0)
[2024-04-23 15:10] LABS: ALB/GLOB Ratio 0.6 RATIO (0.9-2.4); AST(SGOT) 19 U/L (15-37); Alanine Aminotransfer ALT/SGPT 18 U/L (13-56); Albumin, Serum 2.5 g/dL (3.2-5.0); Alkaline Phosphatase 94 U/L (45-117); Anion Gap 6 (5-15); BUN 9 mg/dL (7-18); BUN/Creat Ratio 16.7 RATIO (10-20); Calcium,Total 8.4 mg/dL (8.5-10.1); Chloride 107 mmol/L (98-107); Creatinine, Serum 0.54 mg/dL (0.55-1.02); EST Glomerular Filtration Rate 132 mL/min (>60); Est Glom Filt Rate - Afr Amer 159 mL/min (>60); Globulin 4.2 g/dL (2.2-4.2); Glucose 82 mg/dL (74-106); Potassium 3.6 mmol/L (3.5-5.1); Protein, Total 6.7 g/dL (6.4-8.2); Sodium Level 138 mmol/L (136-145)
== END | disposition home or self-care (01) ==
LOC: PAVLAB 14:42
PROVIDERS: Referring Provider Nurse Practitioner Women's Health; Visit Provider Nurse Practitioner Women's Health
DX: A69.20 Lyme disease, unspecified (principal)
CPT/HCPCS: 36415; 80053; 85025

== ENCOUNTER → 2024-05-08 | Outpatient (CLI) | payer SELFPAY ==
--- NOTE | 2024-05-08 12:30 | US_ITS ---
STUDY: SECOND AND THIRD TRIMESTER OBSTETRICAL ULTRASOUND - LIMITED REASON FOR EXAM: Female, 43 years old growth scan AMA at 32wks LMP: 06/17/2024 PRIOR ULTRASOUND: Prior study dated: 03/24/2024 TECHNIQUE: Transabdominal pelvic ultrasound. TECHNICAL QUALITY: Adequate. FINDINGS: There is a single intrauterine fetus. The fetus is in a cephalic presentation. There is demonstrated cardiac activity with a heart rate of 138 bpm. There is a normal amniotic fluid volume. The largest amniotic fluid pocket measures 3.5 cm. The amniotic fluid index (ZACHARY) is 8.6 cm. The placenta is posterior. There are Grade 1 placental changes. The cervix is not visualized. BIOMETRY: BPD: 8.76 cm: 35 weeks, 3 days HC: 31.55 cm: 35 weeks, 3 days AC: 32.14 cm: 36 weeks, 0 days FL: 0.64 cm: 34 weeks, 1 days Age by LMP: 34 weeks, 2 days. BING by LMP: 06/17/2024. age by current US: 35 weeks, 1 days. BING by current US: 06/11/2024. Estimated weight: 2707 grams, +/- 406 grams, 79 percentile. US/OB Limited With Biometrics IMPRESSION: Single live intrauterine with gestational age by ultrasound of 35 weeks 1 day. Electronically Signed: Kt Zepeda MD at 13:33 EDT ,
== END | disposition home or self-care (01) ==
PROVIDERS: Referring Provider Obstetrics & Gynecology; Visit Provider Obstetrics & Gynecology
DX: O09.529 Supervision of elderly multigravida, unspecified trimester (principal)
CPT/HCPCS: 76816

== ENCOUNTER 2024-05-22 13:26 | Inpatient (IN) | payer SELFPAY ==
[2024-05-22] VITALS (16 sets, daily range): BP systolic 98–124; BP diastolic 53–70; PULSE 78–101; RESP 14–18; TEMP 36.4–36.9; O2SAT 95–100; BMI 28.9
[2024-05-22] MEDS: Lactated Ringers 1,000 ML 50 ML IV (14:05)
[2024-05-22 14:24] LABS: Absolute Lymphocyte Count 2.01 X10^3/uL (0.83-4.51); Absolute Neutrophil Count 8.5 X10^3/uL (2.0-7.7); Basophil# 0.04 X10^3/uL; Basophil% 0.4 % (0-1); Eosinophil# 0.11 X10^3/uL; Hematocrit 29.3 % (37-47); Hemoglobin 9.1 g/dL (12.0-15.0); Lymphocyte # 2.01 X10^3/ul (0.83-4.51); Lymphocyte % 17.9 % (19-41); Mean Corp Hgb Conc 31.1 g/dL (32-36); Mean Corpuscular Hgb 24.1 pg (27.0-32.0); Mean Corpuscular Volume 77.5 fL (81-99); Mean Platelet Vol. 9.8 fl (6.2-12.0); Monocyte# 0.56 X10^3/uL; NRBC Flagged by Analyzer 0 % (0-5); Neutrophil # 8.45 X10^3/uL (2.7-7.7); Neutrophil % 75.3 % (47-70); Platelet Count 239 K/mm3 (150-450); RBC Distribution Width CV 15.2 % (11.6-14.6); RBC Distribution Width SD 41.8 fl (35.1-43.9); Red Blood Count 3.78 M/mm3 (4.2-5.4); White Blood Count 11.2 K/mm3 (4.4-11.0)
[2024-05-22] MEDS: Oxytocin 15 Units/NS 250ml 15 UNITS/250 ML IV.SOLN 2 UNITS IV (14:29)
[2024-05-22] MEDS: Penicillin G Pot 5,000,000 UNITS in 0.9% Normal Saline (100mL MB+) 100 ML 150 UNITS IV (15:00)
[2024-05-22 15:07] LABS: Syphilis Antibodies Non-reactive
[2024-05-22] MEDS: 0.9% Normal Saline Single 100 ML IV.SOLN. INTRA-UTER (15:34)
--- NOTE | 2024-05-22 17:37 | HP.PCM.OB_ITS ---
HPI - General General Date of Admission: 05/22/24 HPI Narrative NOAH OWENS, is a 43 F who presents for IOL secondary to oligohydramnios. she denies any lof admits good fm, has had a complicated by lyme disease in the end of the second trimester Maternal Data Information BING Calculator Estimated Delivery Date Method Current WG Current Estimate 06/17/24 LMP (Certain) 36w 2d PFSH PFS Medical History (Updated 05/22/24 @ 17:[address] Nasreen Donahue MD) Oligohydramnios depression Acute Lyme disease normal course Edema of vulva Chorioamnionitis (spontaneous vaginal delivery) Positive GBS test Anemia Rh negative state in antepartum period Home Medications ?Medication ?Instructions ?Recorded ?Last Taken ?Type Lactobacillus acidophilus 10 10,000 mmu cells PO DAILY 12/04/22 03/24/24 History billion cell capsule (Probiotic) docosahexaenoic acid 200 mg 200 mg PO DAILY 12/04/22 03/23/24 History capsule ( DHA) magnesium aspart,citrate,oxide 400 mg PO DAILY mood support 10/30/23 03/23/24 History iron bis glycinate bess 28 mg 1 cap PO DAILY anemia 03/24/24 03/24/24 History iron-vit C 60 mg-FA 400 mcg-B12 8mcg cap (Gentle Iron) Allergy/AdvReac Type Severity Reaction Status Date / Time Seasonal Allergies: Uncoded Allergy Mild Other Verified 05/22/24 14:30 Family History Mother Diabetes Grandmother Diabetes, Onset Age: 40 maternal Surgical History [place] teeth extracted S/P appendectomy Social History adopted: No household members: spouse number of children: 2 current occupation: [employer] pets and animals: Yes (dogs are outside in kennel) pets and animals: dog(s) history of recent travel: Yes ([place] in July) out of state: Yes out of country: No sexually active: Yes Smoking Status: Never smoker alcohol intake: never substance use type: does not use well-balanced diet: daily or most days caffeine: Yes Type: tea Number of servings: 2 eating out: rarely or never during the past year weight has: remained stable what type of physical activity do you participate in: none dominick/bahai: Mennonite seatbelt use: sometimes do you feel safe at home: Yes additional social history: spouse Odette Marina History 3 Elective abortions Hx Para 2 Spontaneous abortions Hx # Term Pregnancies Ectopic pregnancies Hx # Pregnancies Multiple births # of living children 2 Past Pregnancies Del. Date Name GA/Weeks Outcome Route Bth Weight Gen Labor Lgth Anesthesia Del Locatn Provider FOB Unknown 06/27/2019 Ayesha 39 live - full term vacuum 7# Female 21 hr epidural Peralta Maguire [place] 10/22/22 Yvonne 39 live - full term 8# Female epid ural [facility] [place] Delivery Date: Last Updated by: Divine Baldwin MULTI PUNCH OPERATOR, MULTI PUNCH OPERATOR-C no complications Delivery Date: 10/22/22 Last Updated by: Мария WORLEY IOL suspect chorio Visit Details Expected Delivery Route/Plan Labor Preferences- CB/BF classes: no labor support person: [place] labor intervention preferences: [] pain management options preferred: epidural cut cord/dad catch: yes : yes PP control planned: discussed discussed possible routes of delivery and associated risks: [] special requests: [] Plans Covid status: [] Flu vaccine: [] Tdap vaccine: given Rhogam: [] LARC form signed: yes Problem list reviewed and updated with the most current plan of care details and appropriate orders placed. Relevant counseling for the gestational age provided. Continue routine care and follow up unless otherwise noted in visit notes/problem list details OB Flowsheet Initial Weight: Not Recorded Date -?-?-?-?-?-?-?-?-?-?-?-?- EGA Weight BP Urine Prot -?-?-?-?-?-?-?-?-?-?-?-?- Glucose FHR FuHt Pres Dilation -?-?-?-?-?-?-?-?-?-?-?-?- Effaced St Visit Note 11/09/23 -?-?-?-?-?-?-?-?-?-?-?-?- 8w 3d 157 lb 6 oz 108/70 -?-?-?-?-?-?-?-?-?-?-?-?- 175 -?-?-?-?-?-?-?-?-?--?-?-?- KW- CRL cons wit h dates. NIPT accepted. 12/06/23 -?-?-?-?-?-?-?-?-?-?-?-?- 12w 2d 156 lb 117/78 Negative -?-?-?-?-?-?-?-?-?-?-?-?- Negative 160 -?-?-?-?-?-?-?-?-?-?-?-?- SM- no vb crampi ng 01/03/24 -?-?-?-?-?-?-?-?-?-?-?-?- 16w 2d 159 lb 6 oz 102/66 Nega tive -?-?-?-?-?-?-?-?-?-?-?-?- Negative 155 -?-?-?-?-?-?-?-?-?-?-?-?- LC- no vb/crampi ng. declines afp. anatomy scan ordered with [facility] 01/29/24 -?-?-?-?-?-?-?-?--?-?-?-?- 20w 0d 163 lb 109/72 Negative -?-?-?-?-?-?-?-?-?-?-?-?- Negative 145 20 -?-?-?-?-?-?-?-?-?-?-?-?- KW- no vb/crampi ng. good fm. normal anatomy US reviewed. 02/27/24 -?-?-?-?-?-?-?-?-?-?-?-?- 24w 1d 167 lb 6 oz 104/70 Nega tive -?-?-?-?-?-?-?-?-?-?-?-?- Negative 153 24 -?-?-?-?-?-?-?-?-?-?-?-?- MH-No Vb, LOF. G ood FM. Will do PNlabs, NIPT with baby blood type today. Larc 03/27/24 -?-?-?-?-?-?-?-?-?-?-?-?- 28w 2d 165 lb 4 oz 102/62 Nega tive -?-?-?-?-?-?-?-?-?-?-?-?- Negative 147 27 -?-?-?-?-?-?-?-?-?-?-?-?- JV- newly diagno sed with lyme disease and has some elevations in liver enzymes. repeating cbc and cmp today. JV- newly diagnosed with lym e disease and has some elevations in liver enzymes. repeating cbc and cmp today. Rhogam today. tdap next time. rpt growth at 32 and 36 weeks for lyme dz 04/09/24 -?-?-?-?-?-?-?-?-?-?-?-?- 30w 1d 164 lb 95/62 Trace -?-?-?-?-?-?-?-?-?-?-?-?- Negative 150 30 -?-?--?-?-?-?-?-?-?-?-?-?- SM- no vb lof go od fm no regular ctx discussed testing for ama over 40 yo 04/23/24 -?-?-?-?-?-?-?-?-?-?-?-?- 32w 1d 166 lb 104/60 Negative -?-?-?-?-?-?-?-?-?-?-?-?- Negative 150 140 32 -?-?-?-?-?-?-?-?-?-?-?-?- MH-Reactive NST. No VB, LOF. Good FM. Will get labs today. 05/08/24 -?-?-?-?-?-?-?-?-?-?-?-?- 34w 2d 166 lb 108/73 Negative -?-?-?-?-?-?-?-?-?-?-?-?- Negative 140 34 -?-?-?-?-?-?-?-?-?-?-?-?- MH-Reactive NST. NO VB, LOF. Tdap given 05/22/24 -?-?-?-?-?-?-?-?-?-?-?-?- 36w 2d 168 lb 116/61 Trace -?-?-?-?-?-?-?-?-?-?-?-?- Negative 145 36 Cephalic 1 -?-?-?-?-?-?-?-?-?-?-?-?- 20 -3 KW- no vb/ lof/ctx. good fm. ZACHARY done by SM 1.4. GBS today. TO WP for IOL. NST FHR Rate Baby A Baseline: 130 Variability:: Moderate Accelerations:: 15 x 15 Decelerations:: None NST Reactive:: Yes FHR Category:: Category I Uterine Activity:: irregular ROS Constitutional Constitutional: Reports systems reviewed and no addt'l complaints, except as documented Eyes Eyes: Denies change in vision ENT HEENT: Reports systems reviewed and no addt'l complaints, except as documented; Denies headache(s) Cardiovascular Cardiovascular: Reports systems reviewed and no addt'l complaints, except as documented; Denies chest pain or dyspnea Respiratory/Chest Respiratory/Chest: Reports systems reviewed and no addt'l complaints, except as documented Gastrointestinal Gastrointestinal: Reports systems reviewed and no addt'l complaints, except as documented; Denies abdominal pain Genitourinary Genitourinary: Reports systems reviewed and no addt'l complaints, except as documented, contractions Details: present (irregular) and movement Details: present; Denies dysuria or genital lesions Musculoskeletal Musculoskeletal: Reports systems reviewed and no addt'l complaints, except as documented Neurologic Neurologic: Reports systems reviewed and no addt'l complaints, except as documented Endocrine Endocrinology: Reports systems reviewed and no addt'l complaints, except as documented Vital Signs Vital Signs Vital Signs: 05/22/24 13:53 05/22/24 13:53 05/22/24 13:53 Temperature Temperature Source Temporal Pulse Rate Respiratory Rate 16 Blood Pressure BP Systolic BP Diastolic Pulse Ox 98 05/22/24 13:53 05/22/24 13:54 05/22/24 13:54 Temperature 97.5 F L Temperature Source Pulse Rate 95 Respiratory Rate Blood Pressure 110/60 BP Systolic 110 BP Diastolic 60 Pulse Ox 05/22/24 13:55 05/22/24 13:55 05/22/24 15:32 Temperature Temperature Source Pulse Rate 101 H Respiratory Rate Blood Pressure 98/53 L BP Systolic 98 BP Diastolic 53 Pulse Ox 98 05/22/24 15:32 05/22/24 15:32 05/22/24 15:32 Temperature Temperature Source Temporal Pulse Rate 82 89 Respiratory Rate Blood Pressure BP Systolic BP Diastolic Pulse Ox 05/22/24 15:32 05/22/24 15:32 05/22/24 15:32 Temperature 98.0 F Temperature Source Pulse Rate Respiratory Rate 16 Blood Pressure BP Systolic BP Diastolic Pulse Ox 99 05/22/24 16:31 05/22/24 16:31 05/22/24 16:31 Temperature 98.4 F Temperature Source Temporal Pulse Rate Respiratory Rate 15 Blood Pressure BP Systolic BP Diastolic Pulse Ox 05/22/24 16:32 05/22/24 16:32 05/22/24 16:34 Temperature Temperature Source Pulse Rate 83 Respiratory Rate Blood Pressure 115/62 BP Systolic 115 BP Diastolic 62 Pulse Ox 99 05/22/24 16:34 Temperature Temperature Source Pulse Rate 88 Respiratory Rate Blood Pressure BP Systolic BP Diastolic Pulse Ox Weight Weight: 168 lb 8 oz Body Mass Index (BMI) 28.9 Physical Exam Const alert, oriented x3, no apparent distress and healthy appearing HEENT normocephalic and moist oral mucous membranes Head and Scalp: atraumatic Neck full ROM, no lymphadenopathy, supple and thyroid normal General: trachea midline Lymph Lymphatic: no lymphadenopathy noted Chest inspection of chest normal Resp normal respiratory effort Cardio regular rate GI normal to inspection, nondistended, normoactive bowel sounds, soft to palpation and non-tender Inspection: gravid external exam normal Manual OB Exam: estimated gestational size appropriate, presentation cephalic, dilated, effaced and station Extremity normal to inspection General Extremity: Negative for edema Skin no rashes or lesions noted Neuro no focal motor deficits and deep tendon reflexes 2+ bilaterally Motor Exam: strength 5/5 throughout and clonus absent Psych mental status grossly normal Labs Labs Labs: Blood Type AB NEGATIVE Antibody Screen NEGATIVE Hct 29.3 % (37-47) L Hgb 9.1 g/dL (12.0-15.0) L Obstetrics Ultrasound Syphilis Total Ab Non-reactive Rubella IgG Antibody Reactive (Nonreactive) Hep Bs Antigen Non-Reactive (Nonreactive) Hepatitis C Antibody Non-Reactive (Nonreactive) Chlamydia DNA (PEGGY) Negative (Negative) N.gonorrhoeae DNA (PEGGY) Negative (Negative) HIV 1&2 Antibody Non-Reactive (Nonreactive) Glucose 1 Hr 50 gm 129 mg/dL (70-140) Rhogam given: Yes Assessment & Plan (1) Lyme disease: COMMENT: amoxicillin per PCP, intermittent fevers x 1 month. recommend repeat LFTs and cbc as they were borderline in triage last week of march. 04/23/24: (2) Advanced maternal age (AMA), 40 years or greater: COMMENT: nipt with rh factor, factor is RH +, weekly nsts 32 on and delivery 39-40, growth US 32 and 36 (3) Varicose veins of both lower extremities during : COMMENT: below knee, right worse than left (4) Rh negative status during : QUALIFIERS: Trimester: third trimester Qualified Code(s): O26.893 - Other specified related conditions, third trimester; Z67.91 - Unspecified blood type, Rh negative COMMENT: Rhogam @ 28 weeks & PRN bleeding (5) Supervision of high-risk : QUALIFIERS: Trimester: third trimester Qualified Code(s): O09.93 - Supervision of high risk , unspecified, third trimester COMMENT: PRR , BING 06/17/24, girl PC Yvonne Hodge [place] (6) : QUALIFIERS: Weeks of gestation: 36 weeks Qualified Code(s): Z3A.36 - 36 weeks gestation of COMMENT: discussed genetic & carrier testing, nl anatomy (7) History of depression: COMMENT: no meds (8) Anemia: QUALIFIERS: Anemia type: iron deficiency Iron deficiency anemia type: other iron deficiency Qualified Code(s): D50.8 - Other iron deficiency anemias COMMENT: add Fe, Abn Fe studies. May be related to lymes dx. Rpt CBC 04/23 & if Hgb <9 needs IV FE (9) Oligohydramnios in third trimester: (10) Encounter for induction of labor: PLAN: Plan Patient presents IOL, plan management for with pit and fb. Pain management: consider epidural GBS unknown will treat due to 36 weeks, culture sent Management of any complications: oligo zachary 1.4cm I have reviewed the [facility] and made any clinically relevant updates.
[2024-05-22] MEDS: Penicillin G 3,000,000 Units 50 ML 100 UNITS IV ×2 (19:11→23:09)
[2024-05-23] VITALS (50 sets, daily range): BP systolic 92–149; BP diastolic 50–98; PULSE 81–108; RESP 14–22; TEMP 36.1–37.2; O2SAT 91–100
[2024-05-23] MEDS: Lactated Ringers 1,000 ML 999 ML IV (00:01)
[2024-05-23] MEDS: fentaNYL-bupivacaine (epidural) 100 ML BAG EPIDURAL (00:41)
[2024-05-23] MEDS: Lactated Ringers 1,000 ML 200 ML IV (02:47)
[2024-05-23] MEDS: Penicillin G 3,000,000 Units 50 ML 100 UNITS IV (02:48)
--- NOTE | 2024-05-23 03:11 | PCM.PN.BLA ---
Progress Note arom blood tinged fluid /-1 cat 2 tracing some periodic vairables after rupture of membranes, will start amnioinfusion if needed but starting with present position changes at this time
--- NOTE | 2024-05-23 04:39 | OP.PCM_ITS ---
Assessment & Plan (1) Anemia: QUALIFIERS: Anemia type: iron deficiency Iron deficiency anemia type: other iron deficiency Qualified Code(s): D50.8 - Other iron deficiency anemias COMMENT: add Fe, Abn Fe studies. May be related to lymes dx. Rpt CBC 04/23 & if Hgb <9 needs IV FE (2) History of depression: COMMENT: no meds (3) : QUALIFIERS: Weeks of gestation: 36 weeks Qualified Code(s): Z3A.36 - 36 weeks gestation of COMMENT: discussed genetic & carrier testing, nl anatomy (4) Supervision of high-risk : QUALIFIERS: Trimester: third trimester Qualified Code(s): O09.93 - Supervision of high risk , unspecified, third trimester COMMENT: PRR , BING 06/17/24, girl PC Ayesha Yvonne [place] (5) Rh negative status during : QUALIFIERS: Trimester: third trimester Qualified Code(s): O26.893 - Other specified related conditions, third trimester; Z67.91 - Unspecified blood type, Rh negative COMMENT: Rhogam @ 28 weeks & PRN bleeding (6) Varicose veins of both lower extremities during : COMMENT: below knee, right worse than left (7) Advanced maternal age (AMA), 40 years or greater: COMMENT: nipt with rh factor, factor is RH +, weekly nsts 32 on and delivery 39-40, growth US 32 and 36 (8) Lyme disease: COMMENT: amoxicillin per PCP, intermittent fevers x 1 month. recommend repeat LFTs and cbc as they were borderline in triage last week of march. 04/23/24: (9) Oligohydramnios in third trimester: (10) Encounter for induction of labor: Maternal Data Information BING Calculator Estimated Delivery Date Method Current WG Current Estimate 06/17/24 LMP (Certain) 36w 3d Vaginal Delivery Operative Information Pre-Operative Diagnosis: see a/p diagnoses Post-Operative Diagnosis: same Surgery / Procedure Performed: Spontaneous Vaginal Delivery Type of Anesthesia: Epidural Special Medications: none Estimated Blood Loss: 100 Fluids Replaced: crystalloid Findings Description of Procedure: Patient began pushing and delivered the head in the FRANSICO presentation. The head was delivered atraumatically . The anterior and posterior shoulders delivered without complication followed by the rest of the infant and the was placed on the maternal abdomen. Delayed cord clamping was employed for approximately 60 seconds. Cord was clamped and cut and gentle traction was applied to the cord and the placenta delivered spontaneously immediately following it was noted to be intact but with a small marginal abruption noted with three-vessel cord. The perineum and vagina were inspected and noted to have no laceration. EBL was 100. Patient and infant tolerated delivery well. Amniotic Fluid Description: Bloody Placental Delivery Description: Spontaneous Placenta Disposition: [facility] Specimen(s) Removed: placenta had marginal abruption Cord Vessel Description: 3 Vessels Cord Entanglement: None Delayed Cord Clamping: Yes Post Vaginal Delivery Medications Given After Delivery: IV Pitocin Episiotomy Description: None Complication Complications: None Procedures Urinary/Genital [id number]: [id number] Vaginal Delivery [facility]
--- NOTE | 2024-05-23 04:41 | DCINST_ITS ---
Discharge Instructions Diet Discharge Diet: No restrictions Activity Discharge Activity: Return to Normal Activity, May Not Drive (while taking narcotic pain medications.) and May Shower May resume sexual activity in: 4-6 weeks Dressing / Incision Call your doctor if your incision/area has: Continuous Slow Oozing, Sudden Increased Bleeding, Increased Pain/ Swelling, Increased Redness and Foul Smelling Discharge Follow Up Care Please Follow Up With: Nasreen Donahue MD When: Call [phone] to make an appointment with your doctor in 6 weeks. If you had elevated blood pressure or 4th degree laceration, you will need to be seen in 2 weeks. Test Results: Test results from this visit will be discussed in further detail at your follow- up appointment, if applicable. Discharge Plan Admission Admit Date/Time: 05/22/24 13:26 Attending Provider: Nasreen Dnoahue Primary Care Provider: Care Physician,Milka Primary Discharge Orders/Prescriptions Prescriptions: No Action DHA 200 mg capsule 200 mg PO DAILY Probiotic 10 billion cell capsule 10,000 mmu cells PO DAILY magnesium aspart,citrate,oxide 400 mg magnesium capsule 400 mg PO DAILY Gentle Iron 28 mg iron-60mg -400 mcg-8 mcg capsule 1 cap PO DAILY Referrals / Follow Up: Care Physician,No Primary [Primary Care Provider] - Disposition Disposition (needs filled in before D/C Order can be placed): Home, Self Care
[2024-05-23] MEDS: Oxytocin 15 Units/NS 250ml 15 UNITS/250 ML IV.SOLN 83 UNITS IV (05:00)
[2024-05-23] MEDS: Naproxen 500 MG Tablet PO ×2 (05:54→13:39)
[2024-05-23] MEDS: Rho(D) Immune Globulin 300 MCG (1500 Unit) Syringe IV (09:24)
[2024-05-23] MEDS: 0.9% Saline Lock 10 ML Syringe IV (11:28)
--- NOTE | 2024-05-23 14:11 | CASEMGMT ---
Social Work Assessment Labor and Delivery Unit Patient Address:[address] [place] [address] [address] [place] [address] Phone number: [phone] Date of Referral: 05/23/24 Time of Referral:? 658 Referred By: Dr. Donahue Date of Intervention: ??05/23/24 Time of Intervention:? 1200 Reason for Referral:? mental health Sw completed chart review and acknowledges social work consult due to maternal mental health. Sw presented to bedside and met with mother of baby (JAYE Burks). Sw explained reason for sw involvement and completed psychosocial assessment. History obtained from: medical records, MOB Household composition: Currently residing in the family home is ROXANA GRAY, their two older daughters (Ayesha- 4 and Yvonne- 1) and baby when ready for discharge. Patient's parent/guardian status:? ?ISAAC states that she and ROXANA met while in a show choir together, they have been together now for 7 years. NO concerns reported of domestic violence or intimate partner violence. Medical History: ?ISAAC is 43 year old female who is 3, para 2- now 3 following labor and delivery of . ISAAC received routine care during with [place]. ISAAC acquired Lymes disease during her third trimester this . ISAAC presented to hospital for an induction of labor on 05/22/24 and delivered baby via vaginal delivery at 36 weeks gestation. Baby girl, named Maria C was born weighing 6lb 5oz with apgars of 8 and 10 at one and five minutes of life, respectfully. ISAAC is breast feeding and states that baby will be followed by Dr. Patton for pediatrics. Educational Status:? ISAAC has a bachelors degree in music and ROXANA has his GED. Financial Status: ROXANA is employed outside of the home working as a salesman. ISAAC is a stay at home mom. Supplies:?? Parents have obtained all necessary baby supplies, including: car seat, safe sleep space, clothes, diapers, and wipes. Childcare/Caregiver(s):? ISAAC will be the primary caregiver to baby along with ROXANA when he is not working. Transportation:?? Both parents have their drivers license and reliable means of transportation, no barriers at this time. Programs/Agencies Involved: ???Parents are not connected to any community resources that assist them financially. ISAAC is connected to mental health supports that she can easily reach out to if she feels like she is struggling. Children Services/Legal Issues:??? NO history of children services involvement. NO issues or concerns warranting referral to be made at this time. Behavioral Health Issues: ??Mental Health History:??ROXANA does not have a mental health history. ISAAC states that she has never struggled with anxiety or depression, but found herself struggling with rage after her second daughter was born. ISAAC states that she thought that her hormones were out of balance so she started talking to a parcel post officer and health professional who helped her use natural remedies. ISAAC states that she was feeling extremely anxious, overwhelmed and over stimulated when she would start to scream at her kids. MOB states that she does not ever act that way and did not want to be that kind of parent so that is why she sought help. MOB states that not long after she started using the natural remedies she discovered that she was . MOB states that since she got she has not had any problems or concerns with her mental health. MOB states that this has been the best and best delivery. ISAAC reports that right now she feels great, and better supported to combat any mental health struggles she may have during this period. ? Substance Use History:?ISAAC denies substance use prior to and during . ? Family History:?No family history of substance use/ addiction or significant mental health diagnoses. ? Drug Screens: ??no drug screens observed in chart review. Family/Social Stressors:?ISAAC states that her only stressor right now is that baby came unexpectedly early. ISAAC states that she has everything that she needs for baby, but it will need to get put together. No other concerns or stressors at this time. Support Systems: ISAAC identifies that ROXANA is her biggest support. Depression/Shaken Baby/Safe Sleeping:? Sw educated ISAAC on signs and symptoms of baby blues and mood and anxiety disorders to be on the lookout for. MOB states that if she were to struggle ROXANA would be able to recognize that and has always been supportive of her seeking professional help for her mental health. Roma educated MOB on shaken baby prevention and ABCs of safe sleep. MOB expressed understanding. ASSESSMENT:? MOB and baby admitted following labor and delivery. MOB observed to provide loving and appropriate hands on care to . MOB made eye contact and conversation flowed easily during completion of psychosocial assessment. MOB with mental health history positive for rage/ anxiety/ depression which she sought professional help for and feels more prepared for this journey. MOB has all necessary baby items and natural supports in place. MOB states that if she were to struggle during this period FOB would be her biggest advocate. PLAN:? MOB and baby to be discharged when medically ready. Resources and literature provided for parents to review, including: shaken baby prevention, ABCs of safe sleep, list of county resources that are accessible to them including mental health services and supports, mood and anxiety disorders and Help Me Grow. ?No other services requested or indicated. Blue Hernández, [employer]ER, ATTENDANT [employer]ICE [employer]ORE
[2024-05-24 00:05] VITALS: BP 106/61; PULSE 83; PULSE 86; RESP 16; TEMP 36.5; O2SAT 96
[2024-05-24 03:09] VITALS: BP 97/55; PULSE 66
[2024-05-24 03:20] VITALS: BP 97/55; PULSE 68; RESP 16; TEMP 36.5; O2SAT 97
--- NOTE | 2024-05-24 07:53 | PCM.PN.OB ---
Subjective Subjective Patient doing well without complaints. Tolerating PO. Ambulating and voiding without difficulty. Feeding well. Denies chest pain, shortness of breath, calf pain/swelling, fevers, chills, lightheadedness. Objective Data Objective Data Vital Signs: Vital Signs Temp Pulse Resp BP Pulse Ox O2 Del Method 97.7 F L 68 16 97/55 L 97 Room Air 05/24/24 03:20 05/24/24 03:20 05/24/24 03:20 05/24/24 03:20 05/24/24 03:20 05/24/24 03:20 Oxygen Delivery Method Room Air Weight: 168 lb 8 oz Body Mass Index (BMI) 28.9 Intake & Output: Intake and Output for Last 24 Hours 05/22/24 05/23/24 05/24/24 23:59 23:59 23:59 Intake Total 468.26 / 468.26 2606.74 / 2606.74 Output Total 850 / 850 Balance 468.26 / 468.26 1756.74 / 1756.74 Lab / Micro Data 05/22/24 14:05 Labs: Laboratory Results - last 24 hr 05/23/24 06:48: Screen NEGATIVE, Baby's Blood Type B POSITIVE, Baby's LANA NEGATIVE Physical Exam Const alert and oriented x3 HEENT normocephalic Eyes PERRL Neck full ROM Lymph Lymphatic: no lymphadenopathy noted Chest inspection of chest normal and palpation of chest normal Resp normal respiratory effort and normal air movement Cardio regular rate and regular rhythm GI normal to inspection, nondistended, normoactive bowel sounds Uterus Palpation: uterus fundus firm Extremity normal to inspection, full ROM and no calf tenderness Skin no rashes or lesions noted Psych mental status grossly normal Assessment & Plan (1) (spontaneous vaginal delivery): COMMENT: IOL-oligo 36 girl SM PLAN: s/p PPD # 1 1. routine post delivery care 2. breast feeding- support given 3. rh positive 4. rubella immune 5. plans early d/c home today with appt tomorrow.
[2024-05-24 09:21] VITALS: BP 133/90; PULSE 74; RESP 16; TEMP 36.4; O2SAT 99
[2024-05-24 10:33] VITALS: BP 130/60; PULSE 83
[2024-05-24 10:34] VITALS: BP 130/60
== END 2024-05-24 11:35 | disposition home or self-care (01) | DRG 805 ==
PROVIDERS: Admitting Provider Obstetrics & Gynecology; Visit Provider Obstetrics & Gynecology
DX: O41.03X0 Oligohydramnios, third trimester, not applicable or unspecified (principal); Z37.0 Single live birth; O45.8X3 Other premature separation of placenta, third trimester; O60.14X0 Preterm labor third trimester with preterm delivery third trimester, not applicable or unspecified; A69.20 Lyme disease, unspecified; O98.82 Other maternal infectious and parasitic diseases complicating childbirth; D50.8 Other iron deficiency anemias; O26.893 Other specified pregnancy related conditions, third trimester; O99.02 Anemia complicating childbirth; O76 Abnormality in fetal heart rate and rhythm complicating labor and delivery; Z67.31 Type AB blood, Rh negative; Z3A.36 36 weeks gestation of pregnancy; Z87.59 Personal history of other complications of pregnancy, childbirth and the puerperium
CPT/HCPCS: 59025; 59050; 85025; 85461; 86780; 86850; 86900; 86901; 90384; 99221; J7120; A4216; G0378; J2790; J2791

== ENCOUNTER → 2024-05-22 | Outpatient (CLI) | payer SELFPAY | END | disposition home or self-care (01) | PROVIDERS: Referring Provider Advanced Practice Midwife; Visit Provider Advanced Practice Midwife | DX: Z34.93 Encounter for supervision of normal pregnancy, unspecified, third trimester (principal); Z3A.36 36 weeks gestation of pregnancy | CPT/HCPCS: 87077; 87081; 87186 ==

== ENCOUNTER → 2024-07-08 | Outpatient (CLI) | payer SELFPAY ==
[2024-07-08 10:59] LABS: Absolute Lymphocyte Count 2.31 X10^3/uL (0.83-4.51); Absolute Neutrophil Count 3.5 X10^3/uL (2.0-7.7); Basophil# 0.05 X10^3/uL; Basophil% 0.8 % (0-1); Eosinophil# 0.15 X10^3/uL; Eosinophils% 2.3 % (0-5); Hematocrit 38.6 % (37-47); Hemoglobin 12.1 g/dL (12.0-15.0); Lymphocyte # 2.31 X10^3/ul (0.83-4.51); Lymphocyte % 35.1 % (19-41); Mean Corp Hgb Conc 31.3 g/dL (32-36); Mean Corpuscular Hgb 24.8 pg (27.0-32.0); Mean Corpuscular Volume 79.1 fL (81-99); Monocyte# 0.53 X10^3/uL; NRBC Flagged by Analyzer 0 % (0-5); Neutrophil # 3.53 X10^3/uL (2.7-7.7); Neutrophil % 53.5 % (47-70); Platelet Count 242 K/mm3 (150-450); RBC Distribution Width CV 16.6 % (11.6-14.6); RBC Distribution Width SD 47.3 fl (35.1-43.9); Red Blood Count 4.88 M/mm3 (4.2-5.4); White Blood Count 6.6 K/mm3 (4.4-11.0)
== END | disposition home or self-care (01) ==
LOC: WOBLAB 10:12
PROVIDERS: Referring Provider Nurse Practitioner Women's Health; Visit Provider Nurse Practitioner Women's Health
DX: D50.8 Other iron deficiency anemias (principal)
CPT/HCPCS: 36415; 85025